=== PATIENT | female | born 1995 | race American Indian/Alaskan Native ===

== ENCOUNTER 2021-03-25 14:20 | Emergency (ER) | payer MEDICAID ==
[2021-03-25 14:40] VITALS: BP 135/82
--- NOTE | 2021-03-25 15:11 | ED Physician Documentation ---
History of Present Illness - Stated complaint Stated Complaint: L BIG TOE INFECTION,PX CENTER CHEST - Chief complaint Chief Complaint: Ext Problem - History obtained from History obtained from: Patient - History of Present Illness Timing: Today Pain level max: 0 Pain level now: 0 - Additonal information Additional information: Patient is a 25-year-old female who presents to the emergency department stating that she has noticed what appears to be a fungal infection to her left great toe for the past several weeks. Today she noticed that her toe was more red. No drainage. Nothing makes it better or worse. Not having pain. No fevers. No chills. Has never been treated for this before. Review of Systems Constitutional: denies: Fever, Chills : denies: Now EGA Skin: denies: Rash Musculoskeletal: denies: Neck pain, Back pain Neurologic: denies: Headache PD PAST MEDICAL HISTORY - Past Medical History Past Medical History: No - Past Surgical History Past Surgical History: No - Present Medications Home Medications: Ambulatory Orders Medication Instructions Recorded Confirmed Terbinafine [Lamisil] 250 mg PO DAILY #42 tablet 03/25/21 - Allergies Allergies/Adverse Reactions: Allergies Allergy/AdvReac Type Severity Reaction Status Date / Time No Known Drug Allergies Allergy Verified 03/25/21 14:40 PD ED PE NORMAL - Vitals Vital signs reviewed: Yes - General General: Alert and oriented X 3, No acute distress - HEENT HEENT: Moist mucous membranes - Neck Neck: Supple, no meningeal sign - Cardiac Cardiac: RRR - Respiratory Respiratory: No respiratory distress, Clear bilaterally - Abdomen Abdomen: Soft, Non tender, Non distended - Derm Derm: Warm and dry - Extremities Extremities: Other (Left great toe without erythema, swelling or drainage. The toenail does appear cracked and yellowed.) - Neuro Neuro: Alert and oriented X 3 Results - Vitals Vitals: Vital Signs - 24 hr 03/25/21 14:33 Temperature 36.3 C L Heart Rate 74 Respiratory 16 Rate Blood Pressure 135/82 H O2 Saturation 100 Oxygen O2 Source Room air PD MEDICAL DECISION MAKING - ED course Complexity details: considered differential, d/w patient ED course: Patient with what appears to be onychomycosis. She does not have a secondary infection. No paronychia. No cellulitis. She denies any possibility of . We will place her on oral terbinafine and have her follow-up with podiatry for further care. Patient does not have any chest pain. She denies having chest pain earlier to me. Patient counseled regarding signs and symptoms for which I believe and urgent re-evaluation would be necessary. Patient with good understanding of and agreement to plan and is comfortable going home at this time This document was made in part using voice recognition software. While efforts are made to proofread this document, sound alike and grammatical errors may occur. Departure - Departure Disposition: 01 Home, Self Care Clinical Impression: Fungal toenail infection Condition: Good Instructions: ED Nail Infec Fungal Follow-Up: Gerri Matos, DPM [Provider Admit Priv/Credential] - Carlitos Ferreira DPM [Physician No Access] - Prescriptions: Terbinafine [Lamisil] 250 mg PO DAILY #42 tablet Comments: Please follow-up with your doctor for further care. It is important you follow- up with the blood splatter analyst. The terbinafine treatment will be for 6 weeks, this may need to be extended to 12 weeks. Please call podiatry to schedule an appointme nt within the next week. Return if you worsen. Your prescription was sent to [facility] in [place].
== END 2021-03-25 15:23 | disposition home or self-care (01) ==
LOC: ED 14:20
DX: B35.1 Tinea unguium (principal)
CPT/HCPCS: 99282; 99283

== ENCOUNTER 2021-07-02 11:26 | Emergency (ER) | payer OTHER, MEDICAID ==
[2021-07-02 12:33] LABS: BASOPHILS % (AUTO) 0.5 %; EOSINOPHILS # (AUTO) 0.1 10^3/uL (0.0-0.7); EOSINOPHILS % (AUTO) 1.4 %; HCT - HEMATOCRIT 40.6 % (37.0-47.0); HGB - HEMOGLOBIN 13.4 g/dL (12.0-16.0); LYMPHOCYTES # (AUTO) 2.6 10^3/uL (1.5-3.5); LYMPHOCYTES % (AUTO) 30.9 %; MEAN CORPUSCULAR HEMOGLOBIN 29.7 pg (27.0-31.0); MEAN PLATELET VOLUME 9.2 fL (7.9-10.8); MONOCYTES # (AUTO) 0.5 10^3/uL (0.0-1.0); MONOCYTES % (AUTO) 6.4 %; NEUTROPHILS % (AUTO) 60.7 %; PLT - PLATELET COUNT 297 10^3/uL (130-450); RED BLOOD COUNT 4.51 10^6/uL (4.20-5.40); RED CELL DISTRIBUTION WIDTH 12.7 % (12.0-15.0); WHITE BLOOD COUNT 8.3 x10^3/uL (4.8-10.8)
[2021-07-02 12:47] LABS: BILIRUBIN,TOTAL 0.6 mg/dL (0.2-1.0); CALCIUM 9.2 mg/dL (8.5-10.3); CREATININE 0.6 mg/dL (0.4-1.0); POTASSIUM 3.9 mmol/L (3.5-5.0); TOTAL PROTEIN 7.9 g/dL (6.7-8.2)
--- NOTE | 2021-07-02 13:05 | ED Physician Documentation ---
PD HPI ABD PAIN - Stated complaint Stated Complaint: STOMACH PX, NAUSEA - Chief complaint Chief Complaint: Abd Pain - History obtained from History obtained from: Patient - History of Present Illness Timing - onset: How many days ago (3-4) Timing - duration: Days (3-4) Timing - details: Gradual onset, Waxing and waning (There are 4 days of upper abdominal pain associated with "heartburn" feeling which is worsened with eating. Nausea associated. Has noticed loose stool without any melena but is green-yellow in color.) Quality: Cramping, Aching, Pain Location: RUQ, Epigastric Radiation: Right flank (today) Improved by: Meds (Tums). No: Eating Worsened by: Eating Associated symptoms: Nausea, Loss of appetite. No: Fever, Vomiting, Diarrhea (but loose with some green/yellow coloring), Constipation, Dysuria Similar symptoms before: Has not had sx before Recently seen: Not recently seen Review of Systems Constitutional: denies: Fever, Chills Nose: denies: Rhinorrhea / runny nose, Congestion Throat: denies: Sore throat Respiratory: denies: Cough GI: reports: Abdominal Pain (upper abd central and right), Nausea. denies: Vomiting, Diarrhea, Bloody / black stool : reports: Irregular menses (commonly). denies: Dysuria, Discharge Neurologic: denies: Generalized weakness, Near syncope PD PAST MEDICAL HISTORY - Past Medical History Cardiovascular: None Respiratory: None Endocrine/Autoimmune: None GI: None - Past Surgical History Past Surgical History: No - Present Medications Home Medications: Ambulatory Orders Medication Instructions Recorded Confirmed Terbinafine [Lamisil] 250 mg PO DAILY #42 tablet 03/25/21 Famotidine [Pepcid] 20 mg PO DAILY #20 tablet 07/02/21 HYDROcod/ACETAM 5/325 [[place] 5/325] 1 ea PO Q6H PRN #10 tablet 07/02/21 Ondansetron Odt [Zofran] 4 mg TL Q6H PRN #15 tablet 07/02/21 - Allergies Allergies/Adverse Reactions: Allergies Allergy/AdvReac Type Severity Reaction Status Date / Time peanut Allergy Unknown Verified 07/02/21 11:46 - Living Situation Living Situation: reports: With friend(s) Living Arrangement: reports: At home - Social History Does the pt smoke?: Yes Smoking Status: Current every day smoker Does the pt drink ETOH?: Yes ETOH Use: Other (occasional alcohol; none regular) Does the pt have substance abuse?: No PD ED PE NORMAL - Vitals Vital signs reviewed: Yes - General General: Alert and oriented X 3, No acute distress, Well developed/nourished - HEENT HEENT: PERRL (nonicteric) - Neck Neck: Supple, no meningeal sign, No adenopathy - Cardiac Cardiac: RRR, No murmur - Respiratory Respiratory: Clear bilaterally - Abdomen Abdomen: Normal bowel sounds, Soft, Non distended, No organomegaly, Other (tender epigastric and RUQ area with local guarding but no percussion nor rebound tenderness. ) - Female Female : Deferred - Rectal Rectal: Deferred - Back Back: No CVA TTP - Derm Derm: Normal color, Warm and dry - Extremities Extremities: No edema - Neuro Neuro: Alert and oriented X 3, No motor deficit, Normal speech Results - Vitals Vitals: Vital Signs - 24 hr 07/02/21 07/02/21 11:43 14:39 Temperature 36.7 C 36.8 C Heart Rate 77 64 Respiratory 18 18 Rate Blood Pressure 149/90 H 133/82 H O2 Saturation 96 99 Oxygen O2 Source Room air - Labs Labs: Laboratory Tests 07/02/21 07/02/21 07/02/21 12:30 12:30 13:02 WBC 8.3 RBC 4.51 Hgb 13.4 Hct 40.6 MCV 90.0 MCH 29.7 MCHC 33.0 RDW 12.7 Plt Count 297 MPV 9.2 Neut # (Auto) 5.0 Lymph # (Auto) 2.6 [place] # (Auto) 0.5 Eos # (Auto) 0.1 Baso # (Auto) 0.0 Absolute Nucleated RBC 0.00 Nucleated RBC % 0.0 Sodium 141 Potassium 3.9 Chloride 105 Carbon Dioxide 27 Anion Gap 9.0 BUN 9 Creatinine 0.6 Estimated GFR (MDRD) 121 Glucose 107 H Calcium 9.2 Total Bilirubin 0.6 AST 22 ALT 23 Alkaline Phosphatase 75 Total Protein 7.9 Albumin 4.0 Globulin 3.9 Albumin/Globulin Ratio 1.0 Lipase 26 Urine Color YELLOW Urine Clarity CLEAR Urine pH 6.0 Ur Specific [place] >=1.030 H Urine Protein NEGATIVE Urine Glucose (UA) NEGATIVE Urine Ketones NEGATIVE Urine Occult Blood SMALL H Urine Nitrite NEGATIVE Urine Bilirubin NEGATIVE Urine Urobilinogen 0.2 (NORMAL) Ur Leukocyte Esterase NEGATIVE Urine RBC 6-10 H Urine WBC 0-3 Ur Squamous Epith Cells MOD Squamous H Urine Bacteria Moderate H Urine Mucus Marked Strands Ur Microscopic Review INDICATED Urine Culture Comments NOT INDICATED Urine HCG, Qual NEGATIVE - Rads (name of study) abd ultrasound Radiology: Prelim report reviewed (small amount of sludge in GB; no other abnormality.), See rad report PD MEDICAL DECISION MAKING - ED course Complexity details: reviewed results, considered differential (Consider gastritis versus ulcer versus gallbladder spasm versus pancreatitis.), d/w patient Departure - Departure Disposition: Home, Self Care Clinical Impression: Upper abdominal pain Acute gastritis Qualifiers: Gastritis type: unspecified gastritis Gastritis bleeding: without bleeding Qualified Code(s): K29.00 - Acute gastritis without bleeding Condition: Stable Record reviewed to determine appropriate education?: Yes Instructions: ED Gastritis Prescriptions: HYDROcod/ACETAM 5/325 [[place] 5/325] 1 ea PO Q6H PRN #10 tablet PRN Reason: Pain Famotidine [Pepcid] 20 mg PO DAILY #20 tablet Ondansetron Odt [Zofran] 4 mg TL Q6H PRN #15 tablet PRN Reason: Nausea / Vomiting Comments: Blood tests for pancreas and liver are normal. Your ultrasound does not show any gallbladder inflammation or stones. Presume you have an irritation of the stomach (gastritis). Small frequent fluids and bland food for the next few days. Famotidine acid reducing medicine twice daily for a week. Add ondansetron if needed for nausea. For pain, avoid anti-inflammatories such as ibuprofen or naproxen. Use Tylenol every 4-6 hours as needed. At hydrocodone if needed for worse pain in the short run. I would anticipate improvement over the next 2 to 3 days and resolved by 3 to 5 days. Recheck if not improving in that timeframe and return sooner if worse. I transmitted your prescriptions to [facility] pharmacy. I am prescribing a short course of narcotic pain medication for you. These are potentially dangerous and addictive medications that should be used carefully. These medications may constipate you. Take an rsgr-ugh-bdeaats stool softener such as docusate twice daily with plenty of water while taking these medications. If you go 24 hours without a bowel movement, take [id number] MiraLAX, per package instructions. Do not drink or drive while taking these medications. If you received narcotic or sedating medications while in the emergency department do not drive for 24 hours. Store this medication in a safe, secure place and out of reach of children. It is a violation of federal law to give or sell this medication to another person or to use in a manner other than prescribed. The ED will not refill narcotic prescriptions, including prescriptions lost or stolen. You can dispose of unwanted medications at the [facility]'s office or at several pharmacies such as [facility]. Discharge Date/Time: 07/02/21 14:39
[2021-07-02 13:24] LABS: BILIRUBIN,URINE NEGATIVE (NEGATIVE); GLUCOSE, URINE (UA) NEGATIVE (NEGATIVE); KETONES,URINE (UA) NEGATIVE (NEGATIVE); LEUKOCYTE ESTERASE, URINE NEGATIVE (NEGATIVE); NITRITE,URINE NEGATIVE (NEGATIVE); OCCULT BLOOD,URINE SMALL (NEGATIVE); PROTEIN,URINE NEGATIVE (NEGATIVE); UROBILINOGEN,URINE 0.2 (NORMAL) E.U./dL (NORMAL)
[2021-07-02 13:28] LABS: CLARITY,URINE CLEAR (CLEAR); HCG UR QUAL NEGATIVE
[2021-07-02] MEDS ORDERED: MAG HYDROX/AL HYDROX/SIMETH 30 ML UDC PO STA (13:30)
[2021-07-02] MEDS ORDERED: ONDANSETRON ODT 4 MG TABLET TL STA (13:30)
[2021-07-02] MEDS ORDERED: FAMOTIDINE 20 MG TABLET PO STA (13:31)
[2021-07-02] MEDS ORDERED: LIDOCAINE VISCOUS 2% 15 ML UDC MM STA (13:31)
[2021-07-02 13:38] LABS: BACTERIA,URINE Moderate /HPF (None Seen); MUCUS,URINE Marked Strands; SQUAMOUS EPITHELIAL CELL,UR MOD Squamous (<= Few); WBC,URINE 0-3 /HPF (0-5)
[2021-07-02] MEDS ORDERED: HYDROcod/ACETAM 5/325 MG TABLET PO STA (14:23)
--- NOTE | 2021-07-02 14:38 | Ultrasound Report ---
PROCEDURE: Abdomen Limited INDICATIONS: upper abd pain/nausea with eating TECHNIQUE: Real-time focused scanning was performed of the abdomen, with image documentation. COMPARISON: None FINDINGS: The liver demonstrates normal size. The liver demonstrates moderately increased echogeni city, which limits ultrasound sensitivity for detection of masses. No gallstones are seen. A mild amount of sludge can be seen. The gallbladder wall does not appear thi ckened. There is no specific pericholecystic fluid. The sonographic Do's sign is negative. No biliary ductal dilatation is seen. The common bile duct measures 3 mm. The visualized pancreas is within normal limits. The visualized right kidney is unremarkable. IMPRESSION: A small amount of sludge can be seen within the gallbladder, without additional gallbladder abnormali ty seen. Increased liver echogenicity is seen. This is nonspecific, yet it is most commonly attributed to fatt y infiltration. Note: Concordant preliminary findings given by the group product manager upon the completion of the examination to Dr. Schafer at 2:20 PM on 07/02/2021. Reviewed by: Tommie Enciso MD on 07/02/2021 1:37 PM [place] Approved by: Tommie Enciso MD on 07/02/2021 1:37 PM [facility] Station ID: [id number]
[2021-07-02 14:40] VITALS: BP 133/82
== END 2021-07-02 14:39 | disposition home or self-care (01) ==
LOC: ED 11:26
DX: K29.00 Acute gastritis without bleeding (principal); F17.200 Nicotine dependence, unspecified, uncomplicated
CPT/HCPCS: 36415; 76705; 80053; 81001; 81025; 83690; 85025; 99283; 99284; A9270; Q0162; 81003; 87086

== ENCOUNTER 2021-07-16 08:42 | Emergency (ER) | payer BC, MEDICAID, OTHER ==
[2021-07-16 09:06] VITALS: BP 136/74
--- NOTE | 2021-07-16 09:47 | ED Physician Documentation ---
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 No: Moving Associated symptoms: No: Weakness, Numbness Similar symptoms before: Has not had sx before Review of Systems Constitutional: denies: Fever, Chills Nose: denies: Rhinorrhea / runny nose, Congestion Throat: denies: Sore throat Respiratory: denies: Cough Neurologic: denies: Focal weakness, Numbness PD PAST MEDICAL HISTORY - Past Medical History Cardiovascular: None Respiratory: None Endocrine/Autoimmune: None GI: None - Past Surgical History Past Surgical History: No - Present Medications Home Medications: Ambulatory Orders Medication Instructions Recorded Confirmed Terbinafine [Lamisil] 250 mg PO DAILY #42 tablet 03/25/21 Famotidine [Pepcid] 20 mg PO DAILY #20 tablet 07/02/21 HYDROcod/ACETAM 5/325 [[place] 5/325] 1 ea PO Q6H PRN #10 tablet 07/02/21 Ondansetron Odt [Zofran] 4 mg TL Q6H PRN #15 tablet 07/02/21 Amox/Clav 875/125 [Augmentin] 1 each PO BID 5 Days #10 tablet 07/16/21 - Allergies Allergies/Adverse Reactions: Allergies Allergy/AdvReac Type Severity Reaction Status Date / Time peanut Allergy Unknown Verified 07/16/21 09:06 - Social History Does the pt smoke?: Yes Smoking Status: Current every day smoker Does the pt drink ETOH?: Yes Does the pt have substance abuse?: No PD ED PE NORMAL - Vitals Vital signs reviewed: Yes - General General: Alert and oriented X 3, No acute distress, Well developed/nourished - Derm Derm: Normal color, Warm and dry - Extremities Extremities: Other (right hand with small puncture dorsal over first MC area. No bleeding. No noted FB. Some abrasions of fingers. ) - Neuro Neuro: No motor deficit, No sensory deficit Results - Vitals Vitals: Oxygen O2 Source Room air PD MEDICAL DECISION MAKING - ED course Complexity details: considered differential, d/w patient Departure - Departure Disposition: 01 Home, Self Care Clinical Impression: Dog bite of right hand Qualifiers: Encounter type: initial encounter Qualified Code(s): S61.451A - Open bite of right hand, initial encounter Condition: Stable Record reviewed to determine appropriate education?: Yes Instructions: ED Bite Dog Prescriptions: Amox/Clav 875/125 [Augmentin] 1 each PO BID 5 Days #10 tablet Comments: Cleanse the area with soap and water or briefly with warm soaks 2-3 times a day for the first day or 2 and then routine care. You can use some antibiotic ointment to the area as well. Augmentin oral antibiotic twice daily for 5 days to reduce the chance of infection. Tylenol every 4-6 hours if needed for pains. Recheck if signs of infection develop otherwise this should heal up okay. It likely will get some bruising to the area. I transmitted your prescription to [facility] pharmacy in [place]. Discharge Date/Time: 07/16/21 11:10
[2021-07-16] MEDS ORDERED: AMOX/CLAV 875 MG/125 MG TABLET PO STA (09:56)
[2021-07-16] MEDS ORDERED: ACETAMINOPHEN 325 MG TABLET PO STA (09:56)
== END 2021-07-16 11:10 | disposition home or self-care (01) ==
LOC: ED 08:42
DX: S61.451A Open bite of right hand, initial encounter (principal); W54.0XXA Bitten by dog, initial encounter; Y92.59 Other trade areas as the place of occurrence of the external cause; Y99.0 Civilian activity done for income or pay; F17.200 Nicotine dependence, unspecified, uncomplicated
CPT/HCPCS: 99282; 99283; A9270

== ENCOUNTER 2021-07-30 20:58 | Emergency (ER) | payer OTHER, MEDICAID ==
[2021-07-30] MEDS ORDERED: AMOX/CLAV 875 MG/125 MG TABLET PO STA (21:22)
[2021-07-30] MEDS ORDERED: TETANUS/DIPHTHERIA/PERTUSSIS 0.5 ML SYRINGE IM ONE (21:22)
--- NOTE | 2021-07-30 21:25 | ED Physician Documentation ---
History of Present Illness - Stated complaint Stated Complaint: R HAND DOG BITE - Chief complaint Chief Complaint: Laceration - History obtained from History obtained from: Patient - Additonal information Additional information: 26yF with recent dog bite p/w repeat bite today by a foster dog who is vaccinated against rabies. R hand puncture wound at hypothenar eminence. patient copiously irrigated with hydrogen peroxide and soap/water immediately after. It started bleeding again and so she came to the ED but it has now stopped. she has augmentin from the previous bite that she never took. she did take one dose today at noon. Review of Systems Skin: reports: Bite / sting PD PAST MEDICAL HISTORY - Past Medical History Past Medical History: No Cardiovascular: None Respiratory: None Endocrine/Autoimmune: None GI: None - Past Surgical History Past Surgical History: No - Present Medications Home Medications: Ambulatory Orders Medication Instructions Recorded Confirmed Amox/Clav 875/125 [Augmentin] 1 each PO BID 5 Days #10 tablet 07/16/21 07/30/21 - Allergies Allergies/Adverse Reactions: Allergies Allergy/AdvReac Type Severity Reaction Status Date / Time peanut Allergy Unknown Verified 07/30/21 21:07 - Social History Does the pt smoke?: Yes Smoking Status: Current every day smoker Does the pt drink ETOH?: No Does the pt have substance abuse?: No - Immunizations Immunizations are current?: Yes - POLST Patient has POLST: No PD ED PE NORMAL - Vitals Vital signs reviewed: Yes - General General: Alert and oriented X 3, No acute distress, Well developed/nourished - HEENT HEENT: Atraumatic, PERRL, EOMI - Derm Derm: Other (R hand puncture wound at hypothenar eminence. 2+ radial pulses. normal sensation, movement, cap refill) - Neuro Neuro: No motor deficit, No sensory deficit Results - Vitals Vitals: Vital Signs - 24 hr 07/30/21 21:05 Temperature 36.3 C L Heart Rate 83 Respiratory 20 Rate Blood Pressure 160/101 H O2 Saturation 95 Oxygen O2 Source Room air PD MEDICAL DECISION MAKING - ED course ED course: 26yF p/w dog bite to the hand, neurovascularly intact. She already took one dose of home augmentin and has a leftover unexpired bottle with a 5 day course of 875mg bid augmentin that I advised her she can use. Strict return precautions discussed and patient will plan to f/u with pmd as needed. Departure - Departure Disposition: 01 Home, Self Care Clinical Impression: Dog bite Condition: Good Instructions: ED Bite Dog Comments: You were seen in the emergency department for a dog bite. Please take augmentin 875mg twice a day for the next four days to prevent serious infection. Monitor for any signs of infection. Return to the ED for new or worsening symptoms or other concerns.
[2021-07-30] MEDS ORDERED: BACITRACIN ZINC OINT 1 PACKET TOP STA (21:47)
[2021-07-30] MEDS ORDERED: BACITRACIN ZINC OINT 1 PACKET TOP ONE (21:56)
[2021-07-30 22:04] VITALS: BP 151/93
== END 2021-07-30 22:05 | disposition home or self-care (01) ==
LOC: ED 20:58
DX: S61.451A Open bite of right hand, initial encounter (principal); W54.0XXA Bitten by dog, initial encounter; Y92.009 Unspecified place in unspecified non-institutional (private) residence as the place of occurrence of the external cause; F17.200 Nicotine dependence, unspecified, uncomplicated
CPT/HCPCS: 90471; 90715; 99282; 99283; A9270

== ENCOUNTER 2021-12-31 13:39 | Emergency (ER) | payer MEDICAID, OTHER ==
[2021-12-31 13:58] VITALS: BP 137/72
[2021-12-31] MEDS ORDERED: IBUPROFEN 600 MG TABLET PO STA (14:23)
[2021-12-31] MEDS ORDERED: CHERRY SYRUP 10 ML UDC PO ONE (14:23)
[2021-12-31] MEDS ORDERED: DEXAMETHASONE 10 MG/ML VIAL PO STA (14:23)
--- NOTE | 2021-12-31 14:26 | ED Physician Documentation ---
History of Present Illness - Stated complaint Stated Complaint: BODYACHES,SORE THROAT,EAR PX,FEVER - Chief complaint Chief Complaint: General - Additonal information Additional information: 26-year-old female presents emergency department for evaluation of sore throat, painful swallow, ear pain body aches and fever for 2 days. T-max 100.3. Reports that her son was sick with similar last week but he improved. Patient is not vaccinated for COVID-19 but did do a rapid test at home that was negative. She is mostly worried about her painful throat Review of Systems Constitutional: reports: Fever, Myalgias Eyes: reports: Reviewed and negative Ears: reports: Reviewed and negative Nose: reports: Reviewed and negative Throat: reports: Sore throat, Swollen tonsils. denies: Swallowed foreign body, Reviewed and negative Cardiac: denies: Chest pain / pressure, Palpitations Respiratory: denies: Dyspnea, Cough GI: reports: Reviewed and negative : reports: Reviewed and negative Skin: reports: Reviewed and negative Musculoskeletal: reports: Reviewed and negative PD PAST MEDICAL HISTORY - Past Medical History Cardiovascular: None Respiratory: None Endocrine/Autoimmune: None GI: None - Past Surgical History Past Surgical History: No - Present Medications Home Medications: Ambulatory Orders Medication Instructions Recorded Confirmed Amox/Clav 875/125 [Augmentin] 1 each PO BID 5 Days #10 tablet 07/16/21 07/30/21 - Allergies Allergies/Adverse Reactions: Allergies Allergy/AdvReac Type Severity Reaction Status Date / Time peanut Allergy Unknown Verified 12/31/21 13:54 - Social History Does the pt smoke?: Yes Smoking Status: Current every day smoker Does the pt drink ETOH?: No Does the pt have substance abuse?: No - Immunizations Immunizations are current?: Yes - POLST Patient has POLST: No PD ED PE NORMAL - General General: Alert and oriented X 3, No acute distress, Well developed/nourished - HEENT HEENT: Atraumatic, Ears normal, Moist mucous membranes. No: Pharynx benign (Mildly enlarged tonsils bilaterally without exudate. Posterior oropharynx erythema. Normal swallow. Uvula is midline. No soft palate asymmetry or swelling. 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 Eye Opening: Spontaneous Motor: Obeys Commands Verbal: Oriented GCS Score: 15 - Psych Psych: Normal mood Results - Vitals Vitals: Vital Signs - 24 hr 12/31/21 13:54 Temperature 37.3 C Heart Rate 94 Respiratory 16 Rate Blood Pressure 137/72 H O2 Saturation 98 Oxygen O2 Source Room air - Labs Labs: Laboratory Tests 12/31/21 14:20 Group A Strep Rapid Negative PD MEDICAL DECISION MAKING - ED course Complexity details: considered differential, d/w patient ED course: 26-year-old female presents emergency department for evaluation of generalized body aches, sore throat, left ear pain and painful swallow. Symptoms began last night. T-max of 100.3. She is not vaccinated for COVID but had a negative rapid test at home. Reports her son was sick with similar last week. On exam she has some mild posterior oropharynx erythema and talking slurred enlargement but nothing to suggest RPA or SHOP TAILOR. Rapid strep is negative. Patient was given a dose of Decadron and ibuprofen here in the emergency department. Following the ibuprofen she does have improved swallow. Will defer antibiotics unless culture is positive. Deferred COVID screening as her test was negative at home. She presents with no hypoxia or cough and does not warrant x-ray imaging. Discussed routine care of what I suspect is a viral URI. Emergent return precautions were discussed Departure - Departure Disposition: Home, Self Care Clinical Impression: Sore throat Condition: Stable Record reviewed to determine appropriate education?: Yes Comments: You are seen today in the emergency department for fevers, ear pain, sore throat and body aches. You reported a negative COVID test at home. Your rapid strep test today is negative. We are sending the swab for culture and will order antibiotics only if this culture is positive. As your son was sick with similar last week I suspect you have a viral pharyngitis. I do recommend 600 mg of ibuprofen 2-3 times a day taken with food. Alternatively can try 500 mg of Tylenol to also help with pain and body aches. Drink plenty of fluids. If at any point you find that you have worsening symptoms, ear drainage, are unable to speak or swallow normally then you should return to the ER for second evaluation.
[2021-12-31 14:34] LABS: RAPID STREP SCREEN Negative (Negative)
== END 2021-12-31 15:05 | disposition home or self-care (01) ==
LOC: ED 13:39
DX: J02.9 Acute pharyngitis, unspecified (principal); F17.200 Nicotine dependence, unspecified, uncomplicated; Z28.310 Unvaccinated for COVID-19
CPT/HCPCS: 87070; 87430; 99282; 99283; A9270

== ENCOUNTER 2022-01-02 13:18 | Emergency (ER) | payer MEDICAID ==
[2022-01-02 14:26] LABS: INFECTIOUS MONONUCLEOSIS NEGATIVE (Negative)
--- NOTE | 2022-01-02 14:39 | ED Physician Documentation ---
History of Present Illness - Stated complaint Stated Complaint: BODY RASH - Chief complaint Chief Complaint: Allergic Rx - Additonal information Additional information: 26-year-old female presents emergency department for evaluation of a rash. She began having a papular eruption on her hands face and back of her legs yesterday. She was seen by myself for sore throat and fever 2 days ago. At that time rapid strep testing was negative. She feels that the sore throat and fever have fully resolved but she became very anxious when she developed this rash. No history of similar. Her control room technician reports that her children had a similar rash last week. Review of Systems Constitutional: reports: Fever Eyes: reports: Reviewed and negative Throat: reports: Reviewed and negative Cardiac: reports: Reviewed and negative Respiratory: reports: Reviewed and negative GI: reports: Reviewed and negative : reports: Reviewed and negative Skin: reports: Rash Musculoskeletal: reports: Reviewed and negative Neurologic: reports: Reviewed and negative PD PAST MEDICAL HISTORY - Past Medical History Past Medical History: Yes Cardiovascular: None Respiratory: None Neuro: None Endocrine/Autoimmune: None GI: None POWER DISTRIBUTOR: None : None HEENT: None Psych: Depression, Anxiety, Panic attacks Musculoskeletal: None Derm: None - Past Surgical History Past Surgical History: No - Present Medications Home Medications: Ambulatory Orders Medication Instructions Recorded Confirmed No Known Home Medications 01/02/22 01/02/22 - Allergies Allergies/Adverse Reactions: Allergies Allergy/AdvReac Type Severity Reaction Status Date / Time peanut Allergy Unknown Verified 12/31/21 13:54 - Social History Does the pt smoke?: No Smoking Status: Former smoker Does the pt drink ETOH?: No Does the pt have substance abuse?: No - Immunizations Immunizations are current?: No Immunizations: Other immun not current - POLST Patient has POLST: No PD ED PE NORMAL - General General: Alert and oriented X 3, No acute distress, Well developed/nourished - HEENT HEENT: Atraumatic. No: Pharynx benign (Mild posterior oropharynx erythema without vesicular eruption) - Neck Neck: Supple, no meningeal sign, No adenopathy - Cardiac Cardiac: RRR, No murmur - Respiratory Respiratory: No respiratory distress - Abdomen Abdomen: Normal bowel sounds, Soft - Back Back: No CVA TTP, No spinal TTP - Derm Derm: Normal color, Warm and dry. No: No rash (Papular rash on left side of face, forearms posterior thighs. Nonvesicular. Negative Nikolsky's. No surrounding erythema. Papules are approximately 2 to 3 mm. Raised.) - Neuro Neuro: Alert and oriented X 3, meter repairer 2-12 intact Eye Opening: Spontaneous Motor: Obeys Commands Verbal: Oriented GCS Score: 15 Results - Vitals Vitals: Vital Signs - 24 hr 01/02/22 13:25 Temperature 36.6 C Heart Rate 75 Respiratory 18 Rate Blood Pressure 147/81 H O2 Saturation 100 Oxygen O2 Source Room air - Labs Labs: Laboratory Tests 01/02/22 14:12 Infectious [place] Assay NEGATIVE PD MEDICAL DECISION MAKING - ED course Complexity details: reviewed results, re-evaluated patient, considered differ ential, d/w patient ED course: `This is a very well-appearing though anxious 26-year-old female the presents emergency department for evaluation of a papular rash that began yesterday. Began on her face and she has papular lesions on the left side of her face hands and posterior thighs. Nonvesicular. Negative Nikolsky's. Seen by myself on the for a sore throat and fever. Rapid strep was negative. Here in the emergency department she appears rather well though is anxious. Respiratory PCR panel is pending. Given the recent sore throat and fever I did do a monotest that was negative. I do suspect that she likely has a viral exanthem though this is not consistent with a herpetic lesion and thus will defer any antivirals. Reassurance was offered to the patient. Emergent return precautions discussed Departure - Departure Disposition: 01 Home, Self Care Clinical Impression: Rash and nonspecific skin eruption Condition: Stable Record reviewed to determine appropriate education?: Yes Comments: Mony carter were seen today in the emergency department because you developed a rash yesterday. Goran at the bedside I suspect that the rash is likely due to a virus. Your control room technician's children had rash last week and is likely you have contracted the same virus which causes the fever and sore throat you had. Your strep testing was negative a few days ago. Your mononucleosis testing is negative today. We are sending a respiratory viral panel. In general there is no specific treatment for your rash. I suspect that will simply dissipate over the next week or so. If at any point you have fevers higher than 102, worsening rash, it blisters or you have difficulty breathing then please return to the ER for second evaluation.
[2022-01-02 15:22] LABS: CORONAVIRUS 229E-RESP PCR NOT DETECTED; CORONAVIRUS HKU1-RESP PCR NOT DETECTED; CORONAVIRUS NL63-RESP PCR NOT DETECTED; CORONAVIRUS OC43-RESP PCR NOT DETECTED; SARS-CoV-2 -RESP PCR PANEL NOT DETECTED
[2022-01-02 15:23] LABS: B. PARAPERTUSSIS- RESP PCR PAN NOT DETECTED; B. PERTUSSIS- RESP PCR PANEL NOT DETECTED; C. PNEUMONIAE- RESP PCR PANEL NOT DETECTED; HUMAN METAPNEUMOVIRUS NOT DETECTED; INFLUENZA A- RESP PCR PANEL NOT DETECTED; INFLUENZA B - RESP PCR PANEL NOT DETECTED; M. PNEUMONIAE- RESP PCR PANEL NOT DETECTED; PARAINFLUENZA VIRUS 1 NOT DETECTED; PARAINFLUENZA VIRUS 2 NOT DETECTED; PARAINFLUENZA VIRUS 3 NOT DETECTED; PARAINFLUENZA VIRUS 4 NOT DETECTED; RHINOVIRUS/ENTEROVIRUS DETECTED; RSV- RESP PCR PANEL NOT DETECTED
[2022-01-02 15:28] VITALS: BP 131/80
--- NOTE | 2022-01-04 13:51 | ED Physician Documentation ---
ED Addendum - Addendum Addendum: 01/04/22 13:50 Attempted to notify pt via phone that resp pcr panel + for enterovirus/rhino virus. unable to leave message.
== END 2022-01-02 15:27 | disposition home or self-care (01) ==
LOC: ED 13:18
DX: B34.8 Other viral infections of unspecified site (principal); R21 Rash and other nonspecific skin eruption; Z87.891 Personal history of nicotine dependence; Z20.822 Contact with and (suspected) exposure to COVID-19
CPT/HCPCS: 86308; 87633; 99282; 99283

== ENCOUNTER 2022-05-23 08:00 | Outpatient (CLI) | payer MEDICAID ==
[2022-05-23 10:32] LABS: BILIRUBIN,URINE NEGATIVE (NEGATIVE); GLUCOSE, URINE (UA) NEGATIVE (NEGATIVE); KETONES,URINE (UA) NEGATIVE (NEGATIVE); LEUKOCYTE ESTERASE, URINE NEGATIVE (NEGATIVE); NITRITE,URINE NEGATIVE (NEGATIVE); OCCULT BLOOD,URINE NEGATIVE (NEGATIVE); PROTEIN,URINE NEGATIVE (NEGATIVE); UROBILINOGEN,URINE 0.2 (NORMAL) E.U./dL (NORMAL)
[2022-05-23 10:48] LABS: BACTERIA,URINE Few /HPF (None Seen); CLARITY,URINE CLEAR (CLEAR); RBC,URINE None Seen /HPF (0-5); SQUAMOUS EPITHELIAL CELL,UR MOD Squamous (<= Few); WBC,URINE 0-3 /HPF (0-5)
== END 2022-05-23 23:59 | disposition home or self-care (01) ==
LOC: LAB.WC 08:00
PROVIDERS: ATTEND Nurse Practitioner
DX: Z34.90 Encounter for supervision of normal pregnancy, unspecified, unspecified trimester (principal)
CPT/HCPCS: 81001; 87086

== ENCOUNTER 2022-05-29 12:40 | Outpatient (CLI) | payer MEDICAID ==
--- NOTE | 2022-05-29 16:29 | Ultrasound Report ---
PROCEDURE: OB First Trimester w/TV INDICATIONS: POSITIVE TEST OUTSIDE/PRIOR DATING DATA: Last menstrual period (LMP): 03/22/2022. LMP-based estimated date of delivery (MARLEN): 12/27/2022. First dating scan (date and location): 05/29/2022. Estimated date of delivery (MARLEN) from first dating scan: 01/16/2023. TECHNIQUE: Real-time scanning was performed of the fetus and maternal pelvic organs, with image documentation. Endovaginal scanning was also performed to better visualize the fetus and maternal ovaries. COMPARISON: None. FINDINGS: Embryo: Present with crown-rump length of 0.86 cm corresponding to gestational age of 6 weeks 6 days . Heart rate: 141 bpm Measurement variability in dating: +/- 4 weeks by LMP, +/- 7 days by mean sac diameter (use before 6 weeks gestation if crown-rump length not able to be measured), +/- 5 days by crown-rump length (6-12 weeks gestation). Maternal organs: Ovaries are unremarkable. IMPRESSION: Single living intrauterine . Gestational age by crown-rump length of 6 weeks, 6 days, discor dant with clinical dates. By crown-rump length, MARLEN of 01/16/2023. Reviewed by: Edmond Eddy MD on 05/29/2022 4:28 PM PDT Approved by: Edmond Eddy MD on 05/29/2022 4:28 PM PDT Station ID: [id number]
== END 2022-05-29 12:41 | disposition home or self-care (01) ==
LOC: DI 12:40
PROVIDERS: ATTEND Nurse Practitioner
DX: O26.841 Uterine size-date discrepancy, first trimester (principal); Z3A.01 Less than 8 weeks gestation of pregnancy

== ENCOUNTER 2022-06-13 08:00 | Outpatient (CLI) | payer MEDICAID ==
[2022-06-13 23:20] LABS: CHLAMYDIA TRACHOMATIS DNA NEGATIVE (NEGATIVE); NEISSERIA GONORRHOEAE DNA NEGATIVE (NEGATIVE); TRICHOMONAS VAGINALIS DNA NEGATIVE (NEGATIVE)
== END 2022-06-13 23:59 | disposition home or self-care (01) ==
LOC: LAB.WCP 08:00
PROVIDERS: ATTEND Obstetrics & Gynecology
DX: Z11.3 Encounter for screening for infections with a predominantly sexual mode of transmission (principal)
CPT/HCPCS: 87491; 87591; 87661

== ENCOUNTER 2022-07-03 10:07 | Outpatient (CLI) | payer MEDICAID ==
[2022-07-03 11:40] LABS: BASOPHILS % (AUTO) 0.3 %; EOSINOPHILS # (AUTO) 0.1 10^3/uL (0.0-0.7); EOSINOPHILS % (AUTO) 0.9 %; HGB - HEMOGLOBIN 11.6 g/dL (12.0-16.0); LYMPHOCYTES # (AUTO) 2.3 10^3/uL (1.5-3.5); LYMPHOCYTES % (AUTO) 22.1 %; MEAN CORPUSCULAR HGB CONC 33.1 g/dL (32.0-36.0); MEAN CORPUSCULAR VOLUME 87.5 fL (81.0-99.0); MONOCYTES # (AUTO) 0.5 10^3/uL (0.0-1.0); MONOCYTES % (AUTO) 5.2 %; NEUTROPHILS # (AUTO) 7.3 10^3/uL (1.5-6.6); NEUTROPHILS % (AUTO) 71.3 %; PLT - PLATELET COUNT 349 10^3/uL (130-450); RED CELL DISTRIBUTION WIDTH 12.6 % (12.0-15.0); WHITE BLOOD COUNT 10.2 x10^3/uL (4.8-10.8)
[2022-07-04 04:08] LABS: HBsAG SCREEN Negative (Negative); HCV AB <0.1 s/co ratio (0.0-0.9)
[2022-07-04 05:10] LABS: RPR Non Reactive (Non Reactive)
[2022-07-04 09:09] LABS: HIV SCREEN 4TH GENERATION Non Reactive (Non Reactive)
[2022-07-04 13:10] LABS: VARICELLA-ZOSTER AB IGG <135 index (Immune >165)
== END 2022-07-03 10:08 | disposition home or self-care (01) ==
LOC: LAB 10:07
PROVIDERS: ATTEND Obstetrics & Gynecology
DX: Z34.91 Encounter for supervision of normal pregnancy, unspecified, first trimester (principal)
CPT/HCPCS: 36415; 82950; 85025; 86592; 86762; 86787; 86803; 86850; 86900; 86901; 87340; 87389

== ENCOUNTER 2022-09-03 11:25 | Outpatient (CLI) | payer MEDICAID ==
[2022-09-03 11:57] LABS: ALBUMIN/GLOBULIN RATIO 0.8 (1.0-2.2); BILIRUBIN,TOTAL 0.5 mg/dL (0.2-1.0); CREATININE 0.4 mg/dL (0.4-1.0); POTASSIUM 4.3 mmol/L (3.5-5.0); URIC ACID 3.6 mg/dL (2.6-7.2)
[2022-09-03 11:59] LABS: CREATININE,URINE 46.4 mg/dL; PROTEIN/CREATININE RATIO,URINE 0.1 (<=0.2)
[2022-09-06 20:08] LABS: AFP MOM See interpretation. (.); AFP VALUE 51.5 ng/mL (.); DIA MOM See interpretation. (.); DSR (BY AGE) 1 IN 885 (.); DSR (SECOND TRIMESTER) 1 IN See interpretation. (.); HCG MOM See interpretation. (.); HCG VALUE 34564 mIU/mL (.); INSULIN DEP DIABETES No (.); MATERNAL AGE AT EDD 27.6 yr (.); MULTIPLE GESTATION No (.); OPEN SPINA BIFIDA RISK 1 IN See interpretation. (.); RACE Other (.); RESULTS Report (.); TEST RESULTS See interpretation. (.); TRISOMY 18 RISK See interpretation. (.); UE3 MOM See interpretation. (.); UE3 VALUE 1.95 ng/mL (.)
== END 2022-09-03 11:26 | disposition home or self-care (01) ==
LOC: LAB 11:25
PROVIDERS: ATTEND Obstetrics & Gynecology
DX: Z34.90 Encounter for supervision of normal pregnancy, unspecified, unspecified trimester (principal); Z87.59 Personal history of other complications of pregnancy, childbirth and the puerperium
CPT/HCPCS: 36415; 80053; 81511; 82570; 84156; 84550

== ENCOUNTER 2022-09-18 10:27 | Outpatient (CLI) | payer MEDICAID ==
--- NOTE | 2022-09-18 17:30 | Ultrasound Report ---
PROCEDURE: OB Detailed Eval INDICATIONS: SUPERVISION OF OUTSIDE/PRIOR DATING DATA: Last menstrual period (LMP): 03/22/2022. LMP-based estimated date of delivery (MARLEN): 12/27/2022 First dating scan (date and location): 05/29/2022. Estimated date of delivery (MARLEN) from first dating scan: 01/16/2023. The below data below was generated using the ultrasound MARLEN of 01/16/2023 TECHNIQUE: Real-time scanning was performed of the fetus, with image documentation and biometric measurements. Endovaginal scanning: Not performed COMPARISON: 05/29/2022 FINDINGS: Living second trimester intrauterine with no sonographic evidence of complicatio ns. General: A single living intrauterine gestation is present. Presentation: Breech Placenta: Placental position is anterior, without previa. Amniotic fluid index: 17.2 cm, within normal limits for gestational age. heart rate: 145 beats per minute. Maternal cervical canal: 52 cm long; normal length is 2.5 cm or more. biometrics: Biparietal diameter: 5.6 cm, 23 weeks 0 days Head circumference: 20.8 cm, 22 weeks 6 days Abdominal circumference: 18.7 cm, 23 weeks 3 days Femur length: 4.2 cm, 23 weeks 3 days Estimated gestational age from initial scan: 22 weeks 6 days Composite gestational age from present scan: 23 weeks 1 day Estimated weight and percentile: 592 g, 70.4 percentile Measurement variability in biometric dating: +/- 10 days from 12-20 weeks gestation, +/- 2 weeks from 20-30 weeks gestation, +/- 3 weeks at 30 weeks gestation or later. Anatomic survey: Neuro: Ventricles are normal at less than 10 mm. Cisterna magna is normal at 3-11 mm. Cerebellum i s normal in size and morphology. Nuchal skin fold: Normal at less than 6 mm between 14 and 20 weeks gestational age. Face: Nose and lips, facial profile are normal. Spine: No evidence for spina bifida. Heart: 4-chambered heart is within normal limits. RVOT and LVOT not well seen secondary to pos ition. Diaphragm: Diaphragm is intact. Stomach: Left-sided stomach is present. Kidneys: No hydronephrosis. Normal is less than 5 mm in 2nd trimester, less than 7 mm in 3rd trimester. Cord: 3 vessel cord has orthotopic insertion. Bladder: Normal in size. Extremities: All 4 extremities are visualized. IMPRESSION: 1. Living second trimester intrauterine with no sonographic evidence of complications. Curr ent ultrasound age is 2 days greater than clinical age based on the initial first trimester ultrasoun d. 2. RVOT and LVOT not well seen. Other anatomy well visualized, within normal limits. Comment: Recommend limited follow-up ultrasound for evaluation of ventricular outflow tracts. Reviewed by: Bebeto Martin MD on 09/18/2022 5:29 PM PST Approved by: Bebeto Martin MD on 09/18/2022 5:29 PM PST Station ID: [id number]
== END 2022-09-18 10:28 | disposition home or self-care (01) ==
LOC: DI 10:27
PROVIDERS: ATTEND Obstetrics & Gynecology
DX: Z34.92 Encounter for supervision of normal pregnancy, unspecified, second trimester (principal)

== ENCOUNTER 2022-11-13 09:23 | Outpatient (CLI) | payer MEDICAID ==
[2022-11-13 12:03] LABS: HCT - HEMATOCRIT 34.2 % (37.0-47.0); HGB - HEMOGLOBIN 11.4 g/dL (12.0-16.0); MEAN CORPUSCULAR HEMOGLOBIN 29.3 pg (27.0-31.0); MEAN CORPUSCULAR HGB CONC 33.3 g/dL (32.0-36.0); MEAN CORPUSCULAR VOLUME 87.9 fL (81.0-99.0); MEAN PLATELET VOLUME 10.1 fL (7.9-10.8); RED BLOOD COUNT 3.89 10^6/uL (4.20-5.40); RED CELL DISTRIBUTION WIDTH 13.9 % (12.0-15.0); WHITE BLOOD COUNT 12.9 x10^3/uL (4.8-10.8)
[2022-11-13 12:22] LABS: CREATININE,URINE 99.4 mg/dL; PROTEIN/CREATININE RATIO,URINE 0.1 (<=0.2)
[2022-11-13 12:27] LABS: ALBUMIN 2.9 g/dL (3.2-5.5); ALBUMIN/GLOBULIN RATIO 0.7 (1.0-2.2); BILIRUBIN,TOTAL 0.4 mg/dL (0.2-1.0); CALCIUM 9.1 mg/dL (8.5-10.3); CREATININE 0.6 mg/dL (0.4-1.0); POTASSIUM 4.3 mmol/L (3.5-5.0); TOTAL PROTEIN 6.8 g/dL (6.7-8.2)
== END 2022-11-13 09:24 | disposition home or self-care (01) ==
LOC: LAB.N 09:23
PROVIDERS: ATTEND Obstetrics & Gynecology
DX: R03.0 Elevated blood-pressure reading, without diagnosis of hypertension (principal)
CPT/HCPCS: 36415; 80053; 80061; 82570; 83721; 84156; 84443; 85025; 85027

== ENCOUNTER 2022-11-20 08:36 | Outpatient (CLI) | payer MEDICAID | END 2022-11-20 08:37 | disposition home or self-care (01) | LOC: LAB.N 08:36 | PROVIDERS: ATTEND Obstetrics & Gynecology | DX: Z34.90 Encounter for supervision of normal pregnancy, unspecified, unspecified trimester (principal) | CPT/HCPCS: 36415; 82950 ==

== ENCOUNTER 2022-11-26 11:12 | Outpatient (CLI) | payer MEDICAID ==
[2022-11-26 11:33] VITALS: BP 133/78
[2022-11-26 11:40] LABS: BASOPHILS % (AUTO) 0.3 %; EOSINOPHILS % (AUTO) 0.4 %; HCT - HEMATOCRIT 32.3 % (37.0-47.0); HGB - HEMOGLOBIN 10.7 g/dL (12.0-16.0); LYMPHOCYTES # (AUTO) 2.3 10^3/uL (1.5-3.5); LYMPHOCYTES % (AUTO) 21.6 %; MEAN CORPUSCULAR HEMOGLOBIN 28.8 pg (27.0-31.0); MEAN CORPUSCULAR HGB CONC 33.1 g/dL (32.0-36.0); MEAN CORPUSCULAR VOLUME 86.8 fL (81.0-99.0); MEAN PLATELET VOLUME 9.4 fL (7.9-10.8); MONOCYTES # (AUTO) 0.7 10^3/uL (0.0-1.0); MONOCYTES % (AUTO) 6.8 %; NEUTROPHILS # (AUTO) 7.6 10^3/uL (1.5-6.6); NEUTROPHILS % (AUTO) 70.5 %; PLT - PLATELET COUNT 311 10^3/uL (130-450); RED BLOOD COUNT 3.72 10^6/uL (4.20-5.40); RED CELL DISTRIBUTION WIDTH 13.7 % (12.0-15.0); WHITE BLOOD COUNT 10.7 x10^3/uL (4.8-10.8)
[2022-11-26 11:54] LABS: ALBUMIN 2.6 g/dL (3.2-5.5); ALBUMIN/GLOBULIN RATIO 0.7 (1.0-2.2); BILIRUBIN,TOTAL 0.4 mg/dL (0.2-1.0); CALCIUM 8.9 mg/dL (8.5-10.3); CREATININE 0.4 mg/dL (0.4-1.0); POTASSIUM 3.9 mmol/L (3.5-5.0); TOTAL PROTEIN 6.5 g/dL (6.7-8.2)
[2022-11-26 11:56] LABS: CREATININE,URINE 69.9 mg/dL; PROTEIN/CREATININE RATIO,URINE 0.2 (<=0.2)
--- NOTE | 2022-11-29 18:08 | PROVIDER PROGRESS NOTE ---
- HPI Chief Complaint: Hypertension/PIH Current : Current EDU 01/16/23 Gestation 32 Weeks and 5 Days 3 Para 1 Vital Signs Temperature 98.2 F 11/26/22 11:21 Heart Rate 93 11/26/22 11:21 Respiratory Rate 16 11/26/22 11:21 Blood Pressure 133/78 H 11/26/22 11:21 Temperature 98.2 F 11/26/22 11:21 Heart Rate 93 11/26/22 11:21 Respiratory Rate 16 11/26/22 11:21 Blood Pressure 133/78 H 11/26/22 11:21 O2 Saturation If not protocol: Oxygen Flow, liters/minute - Procedures OB Procedure Performed: NST Diagnosis/Indication for NST: Gestational Hypertension NST Procedure: NST Procedure Start Date 11/26/22 Start Time 11:23 Stop Time 11:45 Vibroacoustic Stimulation Used No Patient States Movement Yes EFM: 140s, moderate variability, positive accelerations, no decelerations [place]: no contractions NST reactive/Cat 1 Performed and read 11/26/22 Service Date of procedure: 11/26/22 - Plan Plan: 27yo at 32.5w sent from office visit after second BP elevation 144/84. She had preeclampsia in her first . Denies headaches, visual changes, abdominal pain. No OB concerns. Good movement. VSS GEN: NAD CV: Regular rate Resp: Breathing unlabored Abd: nt Ext: +1 edema NST reactive Preeclampsia labs reviewed and benign, no proteinuria 27yo at 32.5w with gestational hypertension - NST reactive - Labs benign - Follow up US 12/03 ordered
== END 2022-11-26 12:25 | disposition home or self-care (01) ==
LOC: WFO 11:12 → FBP 11:13 → WFO 12:25
PROVIDERS: ATTEND Obstetrics & Gynecology
DX: O13.3 Gestational [pregnancy-induced] hypertension without significant proteinuria, third trimester (principal); Z3A.32 32 weeks gestation of pregnancy
CPT/HCPCS: 36415; 59025; 80053; 82570; 84156; 85025

== ENCOUNTER 2022-12-10 11:30 | Outpatient (CLI) | payer MEDICAID ==
[2022-12-10 11:45] LABS: HCT - HEMATOCRIT 32.2 % (37.0-47.0); HGB - HEMOGLOBIN 10.6 g/dL (12.0-16.0); MEAN CORPUSCULAR HEMOGLOBIN 28.6 pg (27.0-31.0); MEAN CORPUSCULAR HGB CONC 32.9 g/dL (32.0-36.0); MEAN CORPUSCULAR VOLUME 86.8 fL (81.0-99.0); MEAN PLATELET VOLUME 9.6 fL (7.9-10.8); RED BLOOD COUNT 3.71 10^6/uL (4.20-5.40); WHITE BLOOD COUNT 9.7 x10^3/uL (4.8-10.8)
[2022-12-10 12:01] LABS: ALBUMIN 2.6 g/dL (3.2-5.5); ALBUMIN/GLOBULIN RATIO 0.7 (1.0-2.2); BILIRUBIN,TOTAL 0.4 mg/dL (0.2-1.0); CALCIUM 8.9 mg/dL (8.5-10.3); CREATININE 0.5 mg/dL (0.4-1.0); POTASSIUM 3.9 mmol/L (3.5-5.0); TOTAL PROTEIN 6.6 g/dL (6.7-8.2)
[2022-12-10 13:02] LABS: CREATININE,URINE 61.9 mg/dL; PROTEIN/CREATININE RATIO,URINE 0.2 (<=0.2)
== END 2022-12-10 11:31 | disposition home or self-care (01) ==
LOC: LAB 11:30
PROVIDERS: ATTEND Obstetrics & Gynecology
DX: O13.3 Gestational [pregnancy-induced] hypertension without significant proteinuria, third trimester (principal)
CPT/HCPCS: 36415; 80053; 82570; 84156; 85027

== ENCOUNTER 2022-12-11 16:07 | Outpatient (CLI) | payer MEDICAID ==
[2022-12-11 16:25] VITALS: BP 138/79
--- NOTE | 2022-12-11 18:47 | PROCEDURE REPORT ---
- HPI Diagnosis/Indication for NST: Gestational Hypertension Current EDU 01/16/23 Gestation 34 Weeks and 6 Days 2 Para 1 Vital Signs Temperature 98.2 F 12/11/22 16:19 Heart Rate 91 12/11/22 16:19 Respiratory Rate 18 12/11/22 16:19 Blood Pressure 138/79 H 12/11/22 16:19 Temperature 98.2 F 12/11/22 16:19 Heart Rate 91 12/11/22 16:19 Respiratory Rate 18 12/11/22 16:19 Blood Pressure 138/79 H 12/11/22 16:19 O2 Saturation If not protocol: Oxygen Flow, liters/minute - NST Procedure NST Procedure Start Date 12/11/22 Start Time 16:14 Stop Time 16:46 Vibroacoustic Stimulation Used No Patient States Movement Yes EFM: 140, moderate variability, positive 15x15 accelerations, no decelerations [place]: no contractions NST reactive/Cat 1 Performed and read 12/11/22 - Results and Plan Findings/Impression: 27yo at 34.6w presenting for scheduled NST for gestational hypertension - NST reactive - Follow up as scheduled
== END 2022-12-11 17:00 | disposition home or self-care (01) ==
LOC: WFO 16:07 → FBP 16:09 → WFO 17:00
PROVIDERS: ATTEND Obstetrics & Gynecology
DX: O13.3 Gestational [pregnancy-induced] hypertension without significant proteinuria, third trimester (principal); Z3A.34 34 weeks gestation of pregnancy
CPT/HCPCS: 59025

== ENCOUNTER 2022-12-14 15:49 | Outpatient (CLI) | payer MEDICAID ==
[2022-12-14 16:12] VITALS: BP 129/78
--- NOTE | 2022-12-14 16:52 | PROCEDURE REPORT ---
- HPI Diagnosis/Indication for NST: Gestational Hypertension Vital Signs Temperature 98.1 F 12/14/22 16:07 Heart Rate 90 12/14/22 16:07 Respiratory Rate 20 12/14/22 16:07 Blood Pressure 129/78 12/14/22 16:07 Temperature 98.1 F 12/14/22 16:07 Heart Rate 90 12/14/22 16:07 Respiratory Rate 20 12/14/22 16:07 Blood Pressure 129/78 12/14/22 16:07 O2 Saturation If not protocol: Oxygen Flow, liters/minute - NST Procedure NST Procedure Start Time 16:14 Stop Time 16:46 EFM: 140s, moderate variability, positive 15x15 accelerations, no decelerations [place]: no contractions NST reactive/Cat 1 Performed and read on 12/14/22 - Results and Plan Plan: 27yo at 35.2w presenting for scheduled NST for gestational hypertension - Normotensive today - NST reactive - Follow up as scheduled
== END 2022-12-14 16:55 | disposition home or self-care (01) ==
LOC: WFO 15:49 → FBP 15:53 → WFO 16:55
PROVIDERS: ATTEND Obstetrics & Gynecology
DX: O13.3 Gestational [pregnancy-induced] hypertension without significant proteinuria, third trimester (principal); Z3A.35 35 weeks gestation of pregnancy
CPT/HCPCS: 59025; 99213

== ENCOUNTER 2022-12-17 08:00 | Outpatient (CLI) | payer MEDICAID | END 2022-12-17 23:59 | disposition home or self-care (01) | LOC: LAB.WC 08:00 | PROVIDERS: ATTEND Obstetrics & Gynecology | DX: Z36.85 Encounter for antenatal screening for Streptococcus B (principal) | CPT/HCPCS: 87797 ==

== ENCOUNTER 2022-12-18 12:45 | Outpatient (CLI) | payer MEDICAID ==
--- NOTE | 2022-12-18 16:54 | Ultrasound Report ---
PROCEDURE: OB F/U or Repeat INDICATIONS: GESTATIONAL HYPERTENSION OUTSIDE/PRIOR DATING DATA: Last menstrual period (LMP): 03/22/2022. LMP-based estimated date of delivery (MARLEN): 12/27/2022. First dating scan (date and location): 05/29/2022. Estimated date of delivery (MARLEN) from first dating scan: 1423. The below data below was generated using the ultrasound MARLEN of 01/16/2023 TECHNIQUE: Real-time scanning was performed of the fetus, with image documentation and biometric measurements. COMPARISON: OB ultrasound 09/18/2022 FINDINGS: General: A single living intrauterine gestation is present. Presentation: Vertex Placenta: Placental position is anterior, without previa. Amniotic fluid index: 7 cm, 3rd percentile for gestational age. There is calcification of the place nta. heart rate: 125 beats per minute. Maternal cervical canal: 4.4 cm long; normal length is 2.5 cm or more. biometrics: Biparietal diameter: 8.5 cm 34 weeks 3 days Head circumference: 6.3 cm 35 weeks 0 days Abdominal circumference: 32.8 cm 36 weeks 5 days Femur length: 6.9 cm 35 weeks 1 day Estimated gestational age from initial scan: 35 weeks 6 days Composite gestational age from present scan: 35 weeks 2 days Estimated weight and percentile: 2785 g 50th percentile Measurement variability in biometric dating: +/- 10 days from 12-20 weeks gestation, +/- 2 weeks from 20-30 weeks gestation, +/- 3 weeks at 30 weeks gestation or more. Other: Not applicable. IMPRESSION: Single live anterior with ultrasound gestational age today of 35 weeks 2 days. YOHANA currently measures 3rd percentile consistent with oligohydramnios. Close clinical and imaging fol low-up is recommended. Reviewed by: Manuela Sharma MD on 12/18/2022 4:53 PM PDT Approved by: Manuela Sharma MD on 12/18/2022 4:53 PM PDT Station ID: [id number]
== END 2022-12-18 19:00 | disposition home or self-care (01) ==
LOC: DI 12:45
PROVIDERS: ATTEND Obstetrics & Gynecology
DX: O13.3 Gestational [pregnancy-induced] hypertension without significant proteinuria, third trimester (principal); O28.3 Abnormal ultrasonic finding on antenatal screening of mother; Z3A.35 35 weeks gestation of pregnancy

== ENCOUNTER 2022-12-18 13:33 | Outpatient (CLI) | payer MEDICAID ==
--- NOTE | 2022-12-18 14:13 | PROCEDURE REPORT ---
- HPI Diagnosis/Indication for NST: Gestational Hypertension Current EDU 01/16/23 Gestation 35 Weeks and 6 Days 3 Para 1 Vital Signs Temperature 98.2 F 12/18/22 13:56 Heart Rate 79 12/18/22 13:56 Respiratory Rate 16 12/18/22 13:56 Blood Pressure 149/78 H 12/18/22 13:56 Temperature 98.2 F 12/18/22 13:56 Heart Rate 79 12/18/22 13:56 Respiratory Rate 16 12/18/22 13:56 Blood Pressure 149/78 H 12/18/22 13:56 O2 Saturation If not protocol: Oxygen Flow, liters/minute - NST Procedure NST Procedure Start Date 12/18/22 Start Time 13:40 Stop Time 14:13 Vibroacoustic Stimulation Used No Patient States Movement Yes - Results and Plan Findings/Impression: Patient is a 27-year-old -0-1-1 at 35 weeks 6 days gestation here for scheduled NST. NST Performed 12/18/2022 NST Read 12/18/2022 FHT: 130 bpm baseline, moderate variability, accelerations present, no decelerations. Reactive NST [place]: Quiescent Diagnosis Gestational hypertension 35 weeks gestation Continue with twice weekly NST.
[2022-12-18 15:25] VITALS: BP 149/78
== END 2022-12-18 14:25 | disposition home or self-care (01) ==
LOC: WFO 13:33 → FBP 13:35 → WFO 14:25
PROVIDERS: ATTEND Obstetrics & Gynecology
DX: O13.3 Gestational [pregnancy-induced] hypertension without significant proteinuria, third trimester (principal); Z3A.35 35 weeks gestation of pregnancy
CPT/HCPCS: 59025

== ENCOUNTER 2022-12-21 16:04 | Outpatient (CLI) | payer MEDICAID ==
[2022-12-21 17:02] VITALS: BP 133/77
--- NOTE | 2022-12-24 11:28 | PROCEDURE REPORT ---
- HPI Current EDU 01/16/23 Gestation 36 Weeks and 2 Days 2 Para 1 Vital Signs Temperature 98.2 F 12/21/22 16:27 Heart Rate 90 12/21/22 16:27 Respiratory Rate 17 12/21/22 16:27 Blood Pressure 126/72 12/21/22 16:27 O2 Saturation 100 12/21/22 16:27 Temperature 98.2 F 12/21/22 16:31 Heart Rate 90 12/21/22 16:27 Respiratory Rate 17 12/21/22 16:27 Blood Pressure 133/77 H 12/21/22 16:59 O2 Saturation 100 12/21/22 16:27 If not protocol: Oxygen Flow, liters/minute - NST Procedure NST Procedure Start Date 12/21/22 Start Time 16:10 Stop Time 17:45 Vibroacoustic Stimulation Used Yes Patient States Movement Yes - Results and Plan Plan: Patient is a 27-year-old -0-1-1 at 36 weeks 2 days gestation here for scheduled NST. NST Performed 12/21/2022 NST Read 12/21/2022 FHT: 135 bpm baseline, moderate variability, accelerations present, no decelerations. Could not get consistent 20-minute tracing without movement, but overall reassuring. Reactive NST at consistent portions. [place]: Quiescent Bedside BPP 03/12 Diagnosis 36 weeks gestation Gestational hypertension Continue with twice weekly NST.
== END 2022-12-21 18:20 | disposition home or self-care (01) ==
LOC: WFO 16:04 → FBP 16:05 → WFO 18:20
PROVIDERS: ATTEND Obstetrics & Gynecology
DX: O13.3 Gestational [pregnancy-induced] hypertension without significant proteinuria, third trimester (principal); Z3A.36 36 weeks gestation of pregnancy
CPT/HCPCS: 59025

== ENCOUNTER 2022-12-24 13:58 | Outpatient (CLI) | payer MEDICAID ==
[2022-12-24 14:18] LABS: BASOPHILS % (AUTO) 0.4 %; EOSINOPHILS # (AUTO) 0.1 10^3/uL (0.0-0.7); EOSINOPHILS % (AUTO) 0.5 %; HCT - HEMATOCRIT 32.1 % (37.0-47.0); HGB - HEMOGLOBIN 10.5 g/dL (12.0-16.0); LYMPHOCYTES # (AUTO) 2.3 10^3/uL (1.5-3.5); LYMPHOCYTES % (AUTO) 22.4 %; MEAN CORPUSCULAR HEMOGLOBIN 28.4 pg (27.0-31.0); MEAN CORPUSCULAR HGB CONC 32.7 g/dL (32.0-36.0); MEAN CORPUSCULAR VOLUME 86.8 fL (81.0-99.0); MEAN PLATELET VOLUME 9.9 fL (7.9-10.8); MONOCYTES # (AUTO) 0.5 10^3/uL (0.0-1.0); MONOCYTES % (AUTO) 4.9 %; NEUTROPHILS # (AUTO) 7.4 10^3/uL (1.5-6.6); NEUTROPHILS % (AUTO) 71.5 %; PLT - PLATELET COUNT 312 10^3/uL (130-450); RED CELL DISTRIBUTION WIDTH 13.8 % (12.0-15.0); WHITE BLOOD COUNT 10.4 x10^3/uL (4.8-10.8)
[2022-12-24 14:27] LABS: CREATININE,URINE 101.6 mg/dL; PROTEIN/CREATININE RATIO,URINE 0.1 (<=0.2)
[2022-12-24 14:50] LABS: ALBUMIN 2.7 g/dL (3.2-5.5); ALBUMIN/GLOBULIN RATIO 0.7 (1.0-2.2); BILIRUBIN,TOTAL 0.4 mg/dL (0.2-1.0); CALCIUM 8.8 mg/dL (8.5-10.3); CREATININE 0.7 mg/dL (0.4-1.0); POTASSIUM 3.7 mmol/L (3.5-5.0); TOTAL PROTEIN 6.6 g/dL (6.7-8.2); URIC ACID 5.3 mg/dL (2.6-7.2)
== END 2022-12-24 13:59 | disposition home or self-care (01) ==
LOC: DI 13:58
PROVIDERS: ATTEND Obstetrics & Gynecology
DX: O13.3 Gestational [pregnancy-induced] hypertension without significant proteinuria, third trimester (principal); Z3A.00 Weeks of gestation of pregnancy not specified
CPT/HCPCS: 36415; 80053; 82570; 84156; 84550; 85025

== ENCOUNTER 2022-12-26 08:12 | Inpatient (IN) | payer MEDICAID ==
[2022-12-26 08:50] LABS: BASOPHILS % (AUTO) 0.4 %; EOSINOPHILS # (AUTO) 0.1 10^3/uL (0.0-0.7); EOSINOPHILS % (AUTO) 0.7 %; HCT - HEMATOCRIT 31.7 % (37.0-47.0); HGB - HEMOGLOBIN 10.4 g/dL (12.0-16.0); LYMPHOCYTES % (AUTO) 21.8 %; MEAN CORPUSCULAR HEMOGLOBIN 28.3 pg (27.0-31.0); MEAN CORPUSCULAR HGB CONC 32.8 g/dL (32.0-36.0); MEAN CORPUSCULAR VOLUME 86.4 fL (81.0-99.0); MEAN PLATELET VOLUME 9.8 fL (7.9-10.8); MONOCYTES # (AUTO) 0.4 10^3/uL (0.0-1.0); MONOCYTES % (AUTO) 4.7 %; NEUTROPHILS # (AUTO) 6.6 10^3/uL (1.5-6.6); NEUTROPHILS % (AUTO) 72.1 %; PLT - PLATELET COUNT 299 10^3/uL (130-450); RED BLOOD COUNT 3.67 10^6/uL (4.20-5.40); RED CELL DISTRIBUTION WIDTH 14.1 % (12.0-15.0); WHITE BLOOD COUNT 9.2 x10^3/uL (4.8-10.8)
--- NOTE | 2022-12-26 08:52 | HISTORY & PHYSICAL EXAMINATION ---
Admit History - : 3 Parity: 1 : 1 Risk/History: positive: induced HTN Complications This : positive: induced HTN Smoking Status: Former smoker - Mother's Labs Mother's Blood Type: positive: A Mother's RH: positive: Positive GBS: positive: Group B Step Negative Rubella Status: positive: Immune - Other Maternal History Other Maternal History: HPI: Patient is a 27-year-old -0-1-1 at 37 weeks 0 days gestation by 6 weeks ultrasound presenting for induction of labor secondary to gestational hypertension.. She has good movement. Denies loss of fluid. No FRIAS/BV or RUQP. No vaginal bleeding. Denies nausea and vomiting. Denies urinary urgency or dysuria. All other symptoms reviewed and were negative except per HPI. Course LMP: 03/22/2022 MARLEN by LMP: 12/27/2022 Initial ultrasound: 05/29/2023, 6 weeks 6 days, not consistent with LMP Final MARLEN 01/16/2023 Problems: Obesity: Early 1 hour GTT ordered- 111 1h GTT 127 Gestational hypertension: IOL at 37 week. Sooner if indicated. Labs ordered for assessment. Consdering permanent sterility: Consents signed 11/12/22 Prepregnancy weight 191.4 BMI 35.13 A pos/ Rubella:immune VZV:NON immune Genetic Testing: NIPT Negative, XY AFP-negative (lab completed full Quad screen) FAS: Placenta anterior, RVOT and LVOT not seen Glucola: Early 1 hour GTT 111, second trimester: 127 Influenza: Declines Tdap:10/29/22 COVID: Declines GBS negative HSV:Denies in self or partner Breast pump Rx: 10/29/22 MOD: pp contraception:Likely IUD, considering BTL, consents signed. Pap: 2017, Will do Initial GC/CT: Negative PMH History of gestational hypertension PSH No prior surgeries OB History -0-1-1 1. 2011, 10 weeks, 2. 10/08/2016, 38 weeks, , male, gestational hypertension SH Denies tobacco, alcohol, drugs Family History Mother: Abnormal uterine bleeding Father: Hypertension, diabetes, hyperlipidemia, emphysema Aunt: Colon cancer Maternal grandmother: Coronary artery disease Allergies Peanuts, pollen Medications vitamins Physical exam: General: Alert, oriented, no acute distress Head: Normal cephalic atraumatic Eyes: PERRLA, extraocular motions intact. Respiratory: Normal rate of respiration. No accessory muscle use, normal respiratory effort. Cardiovascular: Regular rate and rhythm Abdomen: Gravid, nontender, nondistended Extremities: Normal range of motion Neuro: Oriented x3. Normal movements Psych: Appropriate mood and affect. Normal judgment and insight SVE: 1/50/-3 FHT: 145 beats per baseline, moderate variability, accelerations present, no decelerations. [place]: Irregular Plan 27-year-old -0-1-1 at 37 weeks 0 days gestation admitted for induction of labor secondary to gestational hypertension 1. Gestational hypertension: -Admit to L&D, admit labs, epidural at patient's request. -Induction starting with 25 mcg every 4 hours vaginally. -CBC, CMP, protein creatinine ratio pending -Blood pressure remains 140s over 90s. 2. 37 weeks gestation 3. Obesity class II, BMI 39 Meds/Allgy - Home Medications Home Medications: Ambulatory Orders Medication Instructions Recorded Confirmed No Known Home Medications 01/02/22 01/02/22 - Allergies Allergies/Adverse Reactions: Allergies Allergy/AdvReac Type Severity Reaction Status Date / Time peanut Allergy Unknown Verified 12/31/21 13:54 Plan for Labor - Plan For Labor I expect patient to be DC'd or transferred within 96 hours.: Yes
[2022-12-26] MEDS ORDERED: lidocaine 1% 20 ML MDV ID PRN (09:01)
[2022-12-26] MEDS ORDERED: OXYTOCIN/SODIUM CHLORIDE 500 ML IV PRN (09:01)
[2022-12-26] MEDS ORDERED: fentaNYL 100 MCG/2 ML VIAL IVP PRN (09:01)
[2022-12-26] MEDS ORDERED: TERBUTALINE 1 MG/ML VIAL SUBQ PRN (09:01)
[2022-12-26] MEDS ORDERED: TRANEXAMIC ACID IN NACL 1,000 MG/100 ML BAG IV PRN (09:01)
[2022-12-26] MEDS ORDERED: miSOPROStoL 200 MCG TABLET PR PRN (09:01)
[2022-12-26] MEDS ORDERED: hydrALAZINE INJ 20 MG/ML VIAL IVP PRN ×2 (09:01)
[2022-12-26] MEDS ORDERED: miSOPROStoL 200 MCG TABLET BC PRN (09:01)
[2022-12-26] MEDS ORDERED: NIFEdipine 10 MG CAPSULE PO PRN (09:01)
[2022-12-26] MEDS ORDERED: METHYLERGONOVINE 0.2 MG/ML VIAL IM PRN (09:01)
[2022-12-26] MEDS ORDERED: LABETALOL 20 MG/4 ML SYRINGE IVP PRN ×3 (09:01)
[2022-12-26] MEDS ORDERED: CARBOPROST TROMETHAMINE 250 MCG/ML AMP IM PRN (09:01)
[2022-12-26] MEDS ORDERED: OXYTOCIN 10 UNIT/ML VIAL IM PRN (09:01)
[2022-12-26] MEDS ORDERED: SODIUM CHLORIDE FLUSH 0.9% 10 ML SYRINGE IVP PRN (09:01)
[2022-12-26 09:09] LABS: ALBUMIN 2.8 g/dL (3.2-5.5); ALBUMIN/GLOBULIN RATIO 0.7 (1.0-2.2); BILIRUBIN,TOTAL 0.3 mg/dL (0.2-1.0); CALCIUM 8.8 mg/dL (8.5-10.3); CREATININE 0.6 mg/dL (0.4-1.0); POTASSIUM 3.6 mmol/L (3.5-5.0); TOTAL PROTEIN 6.7 g/dL (6.7-8.2)
[2022-12-26 09:17] LABS: CREATININE,URINE 44.3 mg/dL; PROTEIN/CREATININE RATIO,URINE 0.2 (<=0.2)
[2022-12-26] MEDS: miSOPROStoL 100 MCG TABLET VG SCH ×2 (09:29→13:25)
[2022-12-26] MEDS ORDERED: SODIUM CHLORIDE FLUSH 0.9% 10 ML SYRINGE IVP SCH (10:00)
--- NOTE | 2022-12-26 16:00 | PROVIDER PROGRESS NOTE ---
Labor Progress Note - Uterine Monitoring Uterine Monitoring Mode: positive: External toco Contraction Frequency (min/apart): 2-4 Contraction Intensity: positive: Mild to moderate Uterine Resting Tone: positive: Soft - Monitoring Monitor Mode: positive: External ultrasound Heart Rate Baseline: 135 Heart Rate Variability: positive: Moderate (6-25 bmp) Accelerations: positive: Present, 15x15 Decelerations: positive: None Strip Review: positive: Category I - Vaginal Exam Dilation (in cm): 0 Effacement (%): 0 Station: -3 - Labor Progress Note Labor Progress Note/Additional Text: Feeling well still. Some contractions felt. Continue induction with misoprostol.
--- NOTE | 2022-12-26 17:41 | PROVIDER PROGRESS NOTE ---
Labor Progress Note - Uterine Monitoring Uterine Monitoring Mode: positive: External toco Contraction Frequency (min/apart): 2-4 Contraction Intensity: positive: Mild to moderate - Monitoring Heart Rate Baseline: 145 Heart Rate Variability: positive: Moderate (6-25 bmp) Accelerations: positive: Present, 15x15 Decelerations: positive: None Strip Review: positive: Category I - Vaginal Exam Dilation (in cm): 2 Effacement (%): 60 Station: -2 Cervical Position: Posterior - Labor Progress Note Labor Progress Note/Additional Text: Discussed frequency of contractions and recommended Paiz balloon cervical ripening balloon to patient. She is amenable and this was placed on difficulty. 80 mL uterine and 40 mL external. Patient tolerated procedure well.
[2022-12-26] MEDS: LACTATED RINGERS 1,000 ML IV SCH (18:38)
[2022-12-26] MEDS ORDERED: OXYTOCIN/SODIUM CHLORIDE 500 ML IV SCH (19:00)
[2022-12-26] MEDS ORDERED: ROPIVACAINE 0.2% 200 MG/100 ML BAG EP ONE (19:04)
[2022-12-26] MEDS ORDERED: ePHEDrine 50 MG/ML VIAL IVP PRN (19:52)
[2022-12-26] MEDS ORDERED: NALOXONE 0.4 MG/ML VIAL IVP PRN (19:52)
[2022-12-26] MEDS ORDERED: ROPIVACAINE 0.2% 200 MG/100 ML BAG EP PRN (19:52)
--- NOTE | 2022-12-26 19:52 | ANESTHESIA ---
Pre-Anesthesia VS, & Labs - Diagnosis Active labor - Procedure vaginal delivery Vital Signs: Temp Pulse Resp BP Pulse Ox O2 Flow Rate 36.6 C 89 16 148/96 H 12/26/22 08:58 12/26/22 08:58 12/26/22 08:58 12/26/22 08:58 Height: 5 ft 2 in Weight (kg): 98.43 kg Body Mass Index: 39.6 BMI Classification: Obese - NPO Last Fluid Intake: clear liquids - Is Patient ?: Yes - Lab Results Current Lab Results: Laboratory Tests 12/26/22 08:35: Sodium 137, Potassium 3.6, Chloride 108, Carbon Dioxide 20 L, Anion Gap 9.0, BUN 7, Creatinine 0.6, Estimated GFR (MDRD) 120, Glucose 117 H, Calcium 8.8, Total Bilirubin 0.3, AST 22, ALT 14, Alkaline Phosphatase 135 H, Total Protein 6.7, Albumin 2.8 L, Globulin 3.9, Albumin/Globulin Ratio 0.7 L 12/26/22 08:35: WBC 9.2, RBC 3.67 L, Hgb 10.4 L, Hct 31.7 L, MCV 86.4, MCH 28.3, MCHC 32.8, RDW 14.1, Plt Count 299, MPV 9.8, Neut # (Auto) 6.6, Lymph # (Auto) 2.0, [place] # (Auto) 0.4, Eos # (Auto) 0.1, Baso # (Auto) 0.0, Absolute Nucleated RBC 0.00, Nucleated RBC % 0.0 12/26/22 08:35: Blood Type A POSITIVE, Antibody Screen NEGATIVE Fish Bones: 12/26/22 08:35 12/26/22 08:35 Home Medications and Allergies Active Medications Carboprost Tromethamine (Carboprost Tromethamine 250 Mcg/Ml Amp) 250 mcg IM .ONCE PRN PRN Reason: Hemorrhage Fentanyl (Fentanyl 100 Mcg/2 Ml Vial) 50 mcg IVP Q1H PRN PRN Reason: Severe Pain (score 7-10) Hydralazine HCl (Hydralazine Inj 20 Mg/Ml Vial) 10 mg IVP .ONCE PRN; Protocol PRN Reason: SBP> or= 160 OR DBP> or= 110 Hydralazine HCl (Hydralazine Inj 20 Mg/Ml Vial) 5 - 10 mg IVP Q20M PRN; Protocol PRN Reason: SBP> or= 160 OR DBP> or= 110 Oxytocin/Sodium Chloride (Pitocin/Sodium Chloride) 500 mls @ 999 mls/hr IV PRN PRN; Protocol PRN Reason: POST- HEMORR PREVENTION Tranexamic Acid (Tranexamic 1,000 Mg/100ml-Nacl) 1,000 mg in 100 mls @ 600 mls/hr IV Q30M PRN PRN Reason: EBL >1200mL and within 3hr Lactated Ringer's (Lr) 1,000 mls @ 125 mls/hr IV .Q8H [facility] Last Admin: 12/26/22 18:38 Dose: 125 mls/hr Oxytocin/Sodium Chloride (Pitocin/Sodium Chloride) 500 mls @ 1 mls/hr IV TITR ULISSES; Protocol Last Admin: 12/26/22 18:38 Dose: 2 milliunit/min, 2 mls/hr Labetalol HCl (Labetalol 20 Mg/4 Ml Syringe) 20 mg IVP .ONCE PRN; Protocol PRN Reason: SBP> or= 160 OR DBP> or= 110 Labetalol HCl (Labetalol 20 Mg/4 Ml Syringe) 20 - 80 mg IVP Q10M PRN; Protocol PRN Reason: SBP> or= 160 OR DBP> or= 110 Labetalol HCl (Labetalol 20 Mg/4 Ml Syringe) 20 - 40 mg IVP Q10M PRN; Protocol PRN Reason: SBP> or= 160 OR DBP> or= 110 Lidocaine HCl (Lidocaine 1% 20 Ml Mdv) 20 ml ID .ONCE PRN PRN Reason: PERINEAL REPAIR Stop: 12/29/22 09:01 Methylergonovine Maleate (Methylergonovine 0.2 Mg/Ml Vial) 0.2 mg IM .ONCE PRN PRN Reason: Hemorrhage Misoprostol (Misoprostol 100 Mcg Tablet) 25 mcg VG Q4H [facility] Last Admin: 12/26/22 13:25 Dose: 25 mcg Misoprostol (Misoprostol 200 Mcg Tablet) 600 mcg BC .ONCE PRN PRN Reason: Hemorrhage Misoprostol (Misoprostol 200 Mcg Tablet) 800 mcg UT .ONCE PRN PRN Reason: Hemorrhage Nifedipine (Nifedipine 10 Mg Capsule) 10 - 20 mg PO Q20M PRN; Protocol PRN Reason: SBP> or= 160 OR DBP> or= 110 Oxytocin (Oxytocin 10 Unit/Ml Vial) 10 unit IM .ONCE PRN PRN Reason: Step One if no IV access. Sodium Chloride (Sodium Chloride Flush 0.9% 10 Ml Syringe) 10 ml IVP Q8H ULISSES Sodium Chloride (Sodium Chloride Flush 0.9% 10 Ml Syringe) 10 ml IVP PRN PRN PRN Reason: NEEDED PER PROVIDER ORDERS Terbutaline Sulfate (Terbutaline 1 Mg/Ml Vial) 0.25 mg SUBQ .ONCE PRN PRN Reason: Tachystole No Known Home Medications 01/02/22 Allergies/Adverse Reactions: Allergies Allergy/AdvReac Type Severity Reaction Status Date / Time peanut Allergy Unknown Verified 12/31/21 13:54 Anes History & Medical History - Anesthetic History Family history of Anesthesia Complications: Denies Family history of Malignant Hyperthermia: Denies - Medical History Cardiovascular: reports: None Pulmonary: reports: None Gastrointestinal: reports: None Urinary: reports: None Neuro: reports: None Musculoskeletal: reports: None Endocrine/Autoimmune: reports: None Blood Disorders: reports: None Skin: reports: None Smoking Status: Former smoker Psychosocial: reports: No issues indicated History of Cancer?: No - Obstetrical History : 3 Parity: 1 Events: reports: induced HTN Complications: reports: induced HTN Exam General: Alert, Oriented x3, Cooperative, No acute distress Dental: WNL Mouth Openin Fingerbreadth Neck Mobility: Normal Mallampati classification: II Thyromental Distance: 4-6 cm Mental/Cognitive Status: Alert/Oriented X3, Normal for patient Plan Anesthesia Type: Epidural Consent for Procedure(s) Verified and Reviewed: Yes Code Status: Attempt Resuscitation ASA classification: 2-Mild systemic disease Is this case an emergency?: No
[2022-12-27] MEDS: LACTATED RINGERS 1,000 ML IV SCH (02:10)
[2022-12-27] MEDS ORDERED: SIMETHICONE CHEW 80 MG TABLET PO PRN (06:13)
--- NOTE | 2022-12-27 06:17 | DELIVERY NOTE ---
Delivery Note - Labor Labor: positive: Augmented by ARM, Augmented by oxytocin - Delivery Method Delivery Method: positive: Spontaneous vaginal delivery - Cervical Ripening Method Cervical Ripening Method: positive: Misoprostil - Presentation Presentation: positive: MARTA - right occiput anterior - Nuchal Cord Nuchal Cord: positive: None - Anesthetic Anesthetic Type: - Amniotic Fluid Description Amniotic Fluid Description: positive: Clear, Bloody (With pushing) - Laceration Laceration: positive: None - Delivery Outcome Delivery Outcome: positive: Livebirth - [place] : positive: Placed in direct skin contact with mother, [place] used sex: positive: Male - Cord Cord: positive: 3 vessels - Placenta Placenta: positive: Intact - Estimated Blood Loss Estimated Blood Loss (in cc): 250 - Post Delivery Events Post Delivery Events: positive: No post delivery events - Delivery Comments (Free Text/Narrative) Delivery Comments (Free Text/Narrative): Preoperative Diagnoses 37 weeks gestation Gestational hypertension Obesity class II BMI of 39 Postoperative Diagnoses Same Delivery of live mercado Patient was admitted for delivery at 37 weeks for gestational hypertension. She received 1 dose of misoprostol followed by a cervical ripening balloon with oxytocin. She progressed to complete and +1 station and had an amniotomy performed with moderate amount of clear fluid. She started pushing and had some bloody fluid with pushing. Delivery Summary: Patient was placed in the dorsal lithotomy position. Upon maternal pushing the head was delivered atraumatically followed by the anterior shoulder, posterior shoulder, then the remainder of the infant's body. A male was delivered w ith APGARS of 9 at 1 minute and 9 at 5 minutes. The infant was placed on its mother's chest . After the cord finished pulsating, the umbilical cord was clamped times two and cut. The placenta delivered intact with three vessel cord. Placenta was not sent to pathology. Thirty units of Pitocin were added to the IV fluid and allowed to run freely. Uterine massage was performed until uterus was deemed firm. Upon inspection of the perineum, vagina and cervix were intact. Uterus again massaged and found to be firm. Needle and sponge counts were correct. Patient was stable and allowed to recover in L&D room. was stable and remained in room with mother. weight is pending at this time.
[2022-12-27] MEDS ORDERED: LACTATED RINGERS 1,000 ML IV SCH (07:00)
[2022-12-27] MEDS: ACETAMINOPHEN 500 MG TABLET PO SCH ×2 (08:22→16:00)
[2022-12-27] MEDS: IBUPROFEN 600 MG TABLET PO SCH ×3 (08:23→22:41)
[2022-12-27] MEDS: DOCUSATE SODIUM 100 MG CAPSULE PO PRN ×2 (08:23→22:37)
[2022-12-28] MEDS: ACETAMINOPHEN 500 MG TABLET PO SCH ×2 (00:02→08:10)
[2022-12-28] MEDS: IBUPROFEN 600 MG TABLET PO SCH ×2 (04:14→11:14)
--- NOTE | 2022-12-28 05:12 | Discharge Plan ---
Discharge Plan Problem Reviewed?: Yes Disposition: Home, Self Care Condition: Good Diet: Regular Instruction Topics: Vaginal After, Depression No Smoking: If you smoke, Please STOP! Call for help. Follow-up with: Akash Jennings MD [Provider Admit Priv/Credential] -
--- NOTE | 2022-12-28 05:15 | DISCHARGE SUMMARY ---
Discharge Summary Admit Date: 12/26/22 Discharge Date: 12/28/22 Discharging Provider: Akash Jennings MD Code Status: Attempt Resuscitation Condition at Discharge: Good Discharge Disposition: 01 Home, Self Care - DIAGNOSES Admission Diagnoses: 37-weeks gestation Gestational Hypertension Discharge Diagnoses with Status of Each Condition: 37-weeks gestation Gestational Hypertension Delivery of live, mercado - HPI History of Present Illness: No acute events. Breast feeding going well. Bonding with baby. Voiding spontaneously. Passing gas. No dizziness. Pain well controlled. Discussed depression and warning signs. Has good support at home. - HOSPITAL COURSE Hospital Course: Patient was admitted at 37 weeks for gestational hypertension and had an induction of labor. She received misoprostol followed by a cervical ripening balloon complimented with oxytocin. She progressed to complete and had AROM with pushing. She delivered a live mercado without complication. course was unremarkable and she was discharged on day 1. Weight 2948g - ALLERGIES Allergies/Adverse Reactions: Allergies Allergy/AdvReac Type Severity Reaction Status Date / Time peanut Allergy Unknown Verified 12/31/21 13:54 - MEDICATIONS Home Medications: Ambulatory Orders Medication Instructions Recorded Confirmed No Known Home Medications 01/02/22 01/02/22 - PHYSICAL EXAM AT DISCHARGE General Appearance: positive: No acute distress, Alert Respiratory: positive: No respiratory distress Peripheral Pulses: positive: 2+ Abdomen: positive: Non-tender, Other (Uterus firm, below umbilicus. ) Skin: positive: Color nml Extremities: positive: Non-tender, Full ROM Neurologic/Psychiatric: positive: Oriented x3, CN's nml (2-12), Motor nml - LABS Result Diagrams: 12/26/22 08:35 12/26/22 08:35 - FOLLOW UP Follow Up: With Akash Jennings at [facility] in one week - TIME SPENT Time Spent in Discharge (Minutes): 20
[2022-12-28] MEDS: DOCUSATE SODIUM 100 MG CAPSULE PO PRN (08:11)
[2022-12-28 12:33] VITALS: BP 133/77
--- NOTE | 2022-12-28 15:33 | Labor Flowsheet ---
Labor Flowsheet Datetime Report Generated by CPN: 12/28/2022 15:33 Datetime: 12/28/2022 12:28 VITAL SIGNS NBP Sys/Christie/Mean (mmHg): 133 : 77 : 90 Pulse: 78 Datetime: 12/28/2022 07:10 SpO2 (%): 99 Datetime: 12/27/2022 08:00 Stage of : Recovery Respirations: 16 Temperature (C): 36.4 Temperature Route: Oral Datetime: 12/27/2022 07:45 LaborFlag: Labor Datetime: 12/27/2022 06:45 PAIN Pain Scale: 0 Datetime: 12/27/2022 05:49 Medication Comments: pitocin bolus started Stage 2 Comments: placenta delivered Datetime: 12/27/2022 05:32 STAGE 2 Pushing: Coached on Pushing Pushing Position: Pushing with Contractions Pushing Progress: Descent with Pushing Datetime: 12/27/2022 05:30 Membrane Status: Ruptured Membranes Rupture Method: Artificial Amniotic Fluid Color: Clear Amniotic Fluid Amount: Moderate Amniotic Fluid Odor: Normal Datetime: 12/27/2022 05:29 UTERINE ACTIVITY Monitor Mode: External Frequency (min): 2-3 Quality: Moderate Duration (sec): 60-80 Resting Tone (Palpate): Relaxed ASSESSMENT A Monitor Mode: External US FHR Baseline Rate : 145 Variability: Minimal - Undetectable to <=5 bpm Accelerations: None Decelerations: Early; Late Category: Category II Datetime: 12/27/2022 05:18 Comments: RN at bedside continually monitoring FHR/US Datetime: 12/27/2022 05:06 VAGINAL EXAM Dilatation (cm): 10.0 Effacement (%): 100 Station: 0 Exam by: iván royal RN Vaginal Bleeding: Normal Show Vaginal Exam Comments: bulging bag Datetime: 12/27/2022 05:03 COMMUNICATION Communication: RN at Bedside; Call/Page Placed to Provider Notification Reason: Status Update Communication Comments: Provider notified patient complete. Requested for delivery Datetime: 12/27/2022 05:01 Cervical Ripening Agents: Paiz Balloon; Cytotec @ Datetime: 12/27/2022 05:00 Pattern: Normal: <= 5 Contractions in 10 Minutes Datetime: 12/27/2022 04:30 Pitocin Checklist: At Least 1 Acceleration of 15 bpm x 15 Seconds in 30 Minutes or Adequate Variabi lity; No More than 1 Late Deceleration Occurred in Past 30 Minutes; No More than 2 Variable Decelerat ions > 60 Seconds in Duration and decreasing >60 bpm in 30 minutes; No More than 5 Uterine Contractio ns in 10 Minutes for any 20 Minute Interval; Uterus Palpates Soft between Contractions Datetime: 12/27/2022 04:01 MEDICATIONS Pitocin (milliunits): Decreased to @ 2 Patient Position/Activity: Right Lateral Datetime: 12/27/2022 04:00 Actions for Decelerations: Side to Side Datetime: 12/27/2022 03:34 Patient Care Comments: peant ball between knees Datetime: 12/27/2022 02:10 PATIENT CARE IV/Blood Work: New IV Bag Hung Hygiene: [facility] Datetime: 12/27/2022 01:00 FHR Baseline Changes: No Baseline Change Datetime: 12/26/2022 22:15 Monitor Interventions for UA: [place] Adjusted Datetime: 12/26/2022 21:30 Contraction Comments: unable to determine duration due to patient positioning Datetime: 12/26/2022 20:25 I/O Interventions: Paiz Cath Inserted Datetime: 12/26/2022 19:27 Pain Presence: None/Denies Pain Relief Measures: Epidural Given Datetime: 12/26/2022 19:26 Epidural Procedure Other: Pump Started Datetime: 12/26/2022 19:18 Monitor Interventions for FHR: Ultrasound Adjusted Epidural Procedure: Loading Dose Datetime: 12/26/2022 19:10 MATERNAL ASSESSMENT Level of Consciousness: Alert DTR's/Clonus: DTRs 2+; No Clonus Headache: Denies Breath Sounds, Left: Clear and Equal Breath Sounds, Right: Clear and Equal Nausea/Vomiting: Denies RUQ Epigastric Pain: Denies Datetime: 12/26/2022 19:07 PROCEDURE TIME OUT Procedure Verify: Correct Patient Position ANESTHESIA Epidural Positioning: Sitting Datetime: 12/26/2022 18:42 Pain Coping: Requesting Pain Medication or Epidural Datetime: 12/26/2022 13:33 Cervix, Consistency: Soft Cervix, Position: Posterior Datetime: 12/26/2022 12:33 Vital Sign Comments: Lateral Up Datetime: 12/26/2022 12:25 Provider Notified (Name): Dr. Akash Jennings Datetime: 11/26/2022 12:09 Membranes Ruptured Date/Time: 12/27/2022 05:30
== END 2022-12-28 14:30 | disposition home or self-care (01) | DRG 807 ==
LOC: WFO 08:12 → FBP 08:14 → WFO 09:00 → FBP 09:01
PROVIDERS: ADMIT Obstetrics & Gynecology; ATTEND Obstetrics & Gynecology
PROC: 3E0P7VZ Introduction of Hormone into Female Reproductive, Via Natural or Artificial Opening (ICD-10-PCS; principal; 2022-12-26)
PROC: 0U7C7ZZ Dilation of Cervix, Via Natural or Artificial Opening (ICD-10-PCS; 2022-12-26)
PROC: 10E0XZZ Delivery of Products of Conception, External Approach (ICD-10-PCS; 2022-12-27)
PROC: 10907ZC Drainage of Amniotic Fluid, Therapeutic from Products of Conception, Via Natural or Artificial Opening (ICD-10-PCS; 2022-12-27)
DX: O13.4 Gestational [pregnancy-induced] hypertension without significant proteinuria, complicating childbirth (principal); Z37.0 Single live birth; Z3A.37 37 weeks gestation of pregnancy; O99.214 Obesity complicating childbirth
CPT/HCPCS: 80053; 82570; 84156; 85025; 86850; 86900; 86901; A9270; J7120

== ENCOUNTER 2023-01-02 16:21 | Outpatient (CLI) | payer MEDICAID ==
[2023-01-02 16:36] LABS: HCT - HEMATOCRIT 36.4 % (37.0-47.0); HGB - HEMOGLOBIN 11.9 g/dL (12.0-16.0); MEAN CORPUSCULAR HEMOGLOBIN 28.7 pg (27.0-31.0); MEAN CORPUSCULAR HGB CONC 32.7 g/dL (32.0-36.0); MEAN CORPUSCULAR VOLUME 87.9 fL (81.0-99.0); MEAN PLATELET VOLUME 8.8 fL (7.9-10.8); RED BLOOD COUNT 4.14 10^6/uL (4.20-5.40); RED CELL DISTRIBUTION WIDTH 13.8 % (12.0-15.0); WHITE BLOOD COUNT 10.5 x10^3/uL (4.8-10.8)
[2023-01-02 16:45] LABS: CREATININE,URINE 49.4 mg/dL; MICROALBUM/CREATININE RATIO,UR 36.4 ug/mg (<30.0); MICROALBUMIN,URINE 1.8 mg/dL (0-300.0)
[2023-01-02 16:46] LABS: ALBUMIN 3.2 g/dL (3.2-5.5); ALBUMIN/GLOBULIN RATIO 0.7 (1.0-2.2); BILIRUBIN,TOTAL 0.4 mg/dL (0.2-1.0); CALCIUM 8.8 mg/dL (8.5-10.3); CREATININE 0.6 mg/dL (0.4-1.0); TOTAL PROTEIN 7.5 g/dL (6.7-8.2)
[2023-01-02 17:27] LABS: PROTEIN/CREATININE RATIO,URINE 0.3 (<=0.2)
== END 2023-01-02 16:22 | disposition home or self-care (01) ==
LOC: LAB 16:21
PROVIDERS: ATTEND Obstetrics & Gynecology
DX: R03.0 Elevated blood-pressure reading, without diagnosis of hypertension (principal)
CPT/HCPCS: 36415; 80053; 82043; 82570; 84156; 85027

== ENCOUNTER 2023-01-08 15:46 | Emergency (ER) | payer MEDICAID ==
[2023-01-08 15:56] VITALS: BP 131/88
[2023-01-08 16:11] LABS: RAPID STREP SCREEN POSITIVE (Negative)
--- NOTE | 2023-01-08 16:30 | ED Physician Documentation ---
PD HPI URI - Stated complaint Stated Complaint: THROAT PX/DIZZY - Chief complaint Chief Complaint: Heent - History obtained from History obtained from: Patient - History of Present Illness Timing - onset: How many days ago (2-3) Contributing factors: No: Sick contact, Immunocompromised Similar symptoms before: Has not had sx before Recently seen: [facility] ([facility] for vaginal discharge and had vag PCR test done. 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 : None HEENT: None Psych: Depression, Anxiety, Panic attacks Musculoskeletal: None Derm: None - Past Surgical History Past Surgical History: No - Present Medications Home Medications: Ambulatory Orders Medication Instructions Recorded Confirmed Penicillin V Potassium 500 mg PO Q6HR 7 Days #28 tablet 01/08/23 - Allergies Allergies/Adverse Reactions: Allergies Allergy/AdvReac Type Severity Reaction Status Date / Time peanut Allergy Unknown Verified 01/08/23 15:54 - Social History Does the pt smoke?: No Smoking Status: Former smoker Does the pt drink ETOH?: No Does the pt have substance abuse?: No - Immunizations Immunizations are current?: No Immunizations: Other immun not current - POLST Patient has POLST: No PD ED PE NORMAL - Vitals Vital signs reviewed: Yes - General General: Alert and oriented X 3, No acute distress, Well developed/nourished - HEENT HEENT: No: Pharynx benign (redness with some swelling of both tonsils. Minimal exudate. No peritonsillar edema. ) - Neck Neck: Supple, no meningeal sign, Other (mild anterior adenopathy. ) - Cardiac Cardiac: RRR, No murmur - Respiratory Respiratory: Clear bilaterally - Derm Derm: Normal color, Warm and dry, No rash Results - Vitals Vitals: Vital Signs - 24 hr 01/08/23 15:49 Temperature 36.1 C L Heart Rate 94 Respiratory 16 Rate Blood Pressure 131/88 H O2 Saturation 96 Oxygen O2 Source Room air - Labs Labs: Laboratory Tests 01/08/23 15:55 Group A Strep Rapid POSITIVE H PD Medical Decision Making - ED course Complexity details: considered differential (consider strep throat vs viral. ), d/w patient, d/w sr solutions consultant (Pediatrics - who said for mom to watch child but would not give prophylactic abx as Group A strep in neonates is very uncommon.) Departure - Departure Disposition: 01 Home, Self Care Clinical Impression: Acute streptococcal pharyngitis Condition: Stable Record reviewed to determine appropriate education?: Yes Follow-Up: Akash Jennings MD [Primary Care Provider] - Prescriptions: Penicillin V Potassium 500 mg PO Q6HR 7 Days #28 tablet Comments: Your rapid strep test is positive. We can treat it with penicillin 4 times daily for the next week. Stay well-hydrated. You will be considered noninfectious after the first 24 hours on antibiotics but please continue for the full duration. Be attentive to your and see if there is any fussiness or poor nursing or other concerns. I did talk with the floatman on-call and we typically would not preventatively treat even the newborns. But just watch for symptoms. Its fairly unlikely and uncommon for a to actually get strep throat. That said certainly avoid direct mouth to face contact as much as he can now and good handwashing etc. The infectivity is well reduced after 24 hours on antibiotics. For you drink lots of fluids and Tylenol ibuprofen are fine. Tylenol is preferable with breast-feeding the but both are okay. I sent your prescription to [facility] pharmacy. Discharge Date/Time: 01/08/23 17:12
[2023-01-08] MEDS ORDERED: PENICILLIN VK 250 MG TABLET PO STA (16:58)
== END 2023-01-08 17:12 | disposition home or self-care (01) ==
LOC: ED 15:46
DX: O99.53 Diseases of the respiratory system complicating the puerperium (principal); J02.0 Streptococcal pharyngitis; O99.893 Other specified diseases and conditions complicating puerperium; N89.8 Other specified noninflammatory disorders of vagina; Z87.891 Personal history of nicotine dependence
CPT/HCPCS: 81514; 87430; 99283; A9270

== ENCOUNTER 2023-01-08 16:20 | Outpatient (CLI) | payer MEDICAID ==
[2023-01-09 20:38] LABS: BACTERIAL VAGINOSIS DNA NEGATIVE (NEGATIVE); CANDIDA GLABRATA DNA NEGATIVE (NEGATIVE); CANDIDA GROUP DNA NEGATIVE (NEGATIVE); CANDIDA KRUSEI DNA NEGATIVE (NEGATIVE); TRICHOMONAS VAGINALIS DNA NEGATIVE (NEGATIVE)
== END 2023-01-08 23:59 | disposition home or self-care (01) ==
LOC: LAB.WC 16:20
PROVIDERS: ATTEND Nurse Practitioner
DX: N89.8 Other specified noninflammatory disorders of vagina (principal)
CPT/HCPCS: 81514

== ENCOUNTER 2023-02-06 13:33 | Emergency (ER) | payer MEDICAID ==
[2023-02-06 13:50] VITALS: BP 144/85
[2023-02-06 14:02] LABS: RAPID STREP SCREEN POSITIVE (Negative)
--- NOTE | 2023-02-06 14:30 | ED Physician Documentation ---
History of Present Illness - Stated complaint Stated Complaint: SWOLLEN THROAT - Chief complaint Chief Complaint: Heent - Additonal information Additional information: Patient 27-year-old female presenting to the emergency department with sore throat, earache x4 days. Denies fever, chills. 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 : None HEENT: None Psych: Depression, Anxiety, Panic attacks Musculoskeletal: None Derm: None - Past Surgical History Past Surgical History: No - Present Medications Home Medications: Ambulatory Orders Medication Instructions Recorded Confirmed Amox/Clav 875/125 [Augmentin 1 tablet PO Q12H 10 Days #20 tablet 02/06/23 875/125 Tab] - Allergies Allergies/Adverse Reactions: Allergies Allergy/AdvReac Type Severity Reaction Status Date / Time peanut Allergy Unknown Verified 02/06/23 13:48 - Social History Does the pt smoke?: No Smoking Status: Former smoker Does the pt drink ETOH?: No Does the pt have substance abuse?: No - Immunizations Immunizations are current?: No Immunizations: Other immun not current - POLST Patient has POLST: No PD ED PE NORMAL - General General: Alert and oriented X 3, No acute distress - HEENT HEENT: Other (Positive tonsillar exudates, no uvular deviation, sublingual elevation or tracheal mobility) - Neck Neck: Supple, no meningeal sign, No bony TTP, No JVD. No: No adenopathy (Tender jugulodigastric adenopathy) - Cardiac Cardiac: RRR, No murmur, No gallop - Abdomen Abdomen: Normal bowel sounds - Female Female : Deferred - Rectal Rectal: Deferred Results - Vitals Vitals: Vital Signs - 24 hr 02/06/23 13:41 Temperature 36.6 C Heart Rate 79 Respiratory 17 Rate Blood Pressure 144/85 H O2 Saturation 98 Oxygen O2 Source Room air - Labs Labs: Laboratory Tests 02/06/23 13:40 Group A Strep Rapid POSITIVE H PD Medical Decision Making - ED course Complexity details: reviewed results, d/w patient ED course: Patient with positive strep swab, sore throat and other indications of strep pharyngitis. Treated with amoxicillin here in the emergency department. Prescription sent to preferred pharmacy. Encouraged follow-up with primary care. Departure - Departure Disposition: 01 Home, Self Care Clinical Impression: Strep pharyngitis Instructions: ED Strep Pharyngitis Conf Prescriptions: Amox/Clav 875/125 [Augmentin 875/125 Tab] 1 tablet PO Q12H 10 Days #20 tablet Comments: Thank you for allowing us to care for you today would be general. Today in the emergency department you tested positive for strep pharyngitis. I have sent a prescription to your preferred pharmacy, [facility] in [place].Recommend increasing your intake and fiber for fluids and natural probiotics while on antibiotics. Please follow-up with your primary care doctor as needed. If anytime you develop any new or worsening symptoms please do not hesitate to return.
[2023-02-06] MEDS ORDERED: HYDROcod/ACETAM 5/325 MG TABLET PO STA (14:40)
[2023-02-06] MEDS ORDERED: AMOX/CLAV 875 MG/125 MG TABLET PO STA (14:45)
[2023-02-06] MEDS ORDERED: ACETAMINOPHEN 325 MG TABLET PO STA (14:46)
== END 2023-02-06 15:35 | disposition home or self-care (01) ==
LOC: ED 13:33
DX: J02.0 Streptococcal pharyngitis (principal); Z87.891 Personal history of nicotine dependence
CPT/HCPCS: 87430; 99283; A9270

== ENCOUNTER 2023-08-11 11:10 | Emergency (ER) | payer MEDICAID ==
--- NOTE | 2023-08-11 12:39 | XRAY Report ---
PROCEDURE: Ankle 3+V LT INDICATIONS: ankle inj TECHNIQUE: 3 views of the ankle were acquired. COMPARISON: None. FINDINGS: Bones: No fractures or dislocations. Ankle mortise is normally aligned. No suspicious bony lesions . An accessory ossicle is seen, an os trigonum. Soft tissues: No tibiotalar joint effusion. Achilles tendon appears normal. IMPRESSION: No acute bony abnormality is seen on these plain films. Reviewed by: Tommie Enciso MD on 08/11/2023 11:38 AM [facility] Approved by: Tommie Enciso MD on 08/11/2023 11:38 AM [facility] Station ID: [id number]
--- NOTE | 2023-08-11 12:45 | ED Physician Documentation ---
PD HPI LOWER EXT INJURY - Stated complaint Stated Complaint: LFT ANKLE PX - Chief complaint Chief Complaint: Ext Problem - History obtained from History obtained from: Patient - Additional information Additional information: Initially injured her left ankle falling on the stairs 4 weeks ago and then reinjured it with an inversion injury 2 weeks ago. She has a lot of pain laterally when she walks. No other injuries. 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 : None HEENT: None Psych: Depression, Anxiety, Panic attacks Musculoskeletal: None Derm: None - Past Surgical History Past Surgical History: No - Present Medications Home Medications: Ambulatory Orders Medication Instructions Recorded Confirmed Amox/Clav 875/125 [Augmentin 1 tablet PO Q12H 10 Days #20 tablet 02/06/23 875/125 Tab] - Allergies Allergies/Adverse Reactions: Allergies Allergy/AdvReac Type Severity Reaction Status Date / Time peanut Allergy Unknown Verified 02/06/23 13:48 - Social History Does the pt smoke?: No Smoking Status: Never smoker Does the pt drink ETOH?: No Does the pt have substance abuse?: No - Immunizations Immunizations are current?: No Immunizations: Other immun not current - POLST Patient has POLST: No PD ED PE NORMAL - Vitals Vital signs reviewed: Yes - General General: Alert and oriented X 3, No acute distress - Extremities Extremities: Other (Left ankle is visibly normal with mild tenderness over the ATFL more than the malleoli. No foot or proximal fibular tenderness.) - Neuro Neuro: Alert and oriented X 3, Normal speech Results - Vitals Vitals: Vital Signs - 24 hr 08/11/23 11:35 Temperature 36.8 C Heart Rate 74 Respiratory 15 Rate Blood Pressure 141/86 H O2 Saturation 98 Oxygen O2 Source Room air - Rads (name of study) Three-view x-ray of the left ankle is negative. Relevant Findings:: Final report received, EMP independent interpretation of test PD Medical Decision Making - ED course ED course: Left ankle sprain with reinjury. Placed in a Aircast and counseled on the need to prevent reinjury's and conservative care as well as follow-up precautions. Departure - Departure Disposition: 01 Home, Self Care Clinical Impression: Left ankle sprain Qualifiers: Encounter type: initial encounter Involved ligament of ankle: anterior talofibular ligament Qualified Code(s): S93.492A - Sprain of other ligament of l eft ankle, initial encounter Condition: Good Record reviewed to determine appropriate education?: Yes Instructions: ED Sprain Ankle Comments: As discussed the x-rays are looking okay and it seeming like an ankle sprain with a reinjury. Wear the air splint when up and around to prevent reinjuries and wear very supportive shoes. Tylenol and/or ibuprofen as needed for pain. Follow-up with your doctor in 2 weeks if not improving. Return if worse. Forms: PCP List, Activity restrictions
[2023-08-11 13:27] VITALS: BP 133/87; O2SAT 100
== END 2023-08-11 13:22 | disposition home or self-care (01) ==
LOC: ED 11:10
DX: S93.492A Sprain of other ligament of left ankle, initial encounter (principal); X50.1XXA Overexertion from prolonged static or awkward postures, initial encounter
CPT/HCPCS: 99283

== ENCOUNTER 2023-12-15 18:16 | Emergency (ER) | payer MEDICAID ==
[2023-12-15 19:01] LABS: RAPID STREP SCREEN POSITIVE (Negative)
--- NOTE | 2023-12-15 19:26 | ED Physician Documentation ---
History of Present Illness - Stated complaint Stated Complaint: EAR/THROAT PX - Chief complaint Chief Complaint: Heent - History obtained from History obtained from: Patient - History of Present Illness Timing: How many days ago (3) Pain level max: 8 Pain level now: 8 - Additonal information Additional information: 28-year-old female presents to the emergency department for sore throat for the past 3 days. She states that this has gradually worsened. She states that she had strep pharyngitis 8 times last year. This feels similar. Has had bodyaches and chills. No cough. No congestion. Worse with swallowing and eating. Nothing makes it better. 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 : None HEENT: None Psych: Depression, Anxiety, Panic attacks Musculoskeletal: None Derm: None - Past Surgical History Past Surgical History: No - Present Medications Home Medications: Ambulatory Orders Medication Instructions Recorded Confirmed Amoxicillin 500 mg PO TID #30 cap 12/15/23 - Allergies Allergies/Adverse Reactions: Allergies Allergy/AdvReac Type Severity Reaction Status Date / Time peanut Allergy Unknown Verified 02/06/23 13:48 - Social History Does the pt smoke?: No Smoking Status: Never smoker Does the pt drink ETOH?: No Does the pt have substance abuse?: No - Immunizations Immunizations are current?: No Immunizations: Other immun not current - POLST Patient has POLST: No PD ED PE NORMAL - Vitals Vital signs reviewed: Yes - General General: Alert and oriented X 3, No acute distress - HEENT HEENT: Ears normal, Moist mucous membranes, Other (Posterior oropharynx is erythematous with tonsillar exudates. Normal phonation. No trismus. Uvula midline.) - Neck Neck: Supple, no meningeal sign, Other (Shotty anterior lymphadenopathy) - Cardiac Cardiac: RRR, No murmur, Strong equal pulses - Respiratory Respiratory: No respiratory distress, Clear bilaterally - Abdomen Abdomen: Soft, Non tender, Non distended - Derm Derm: Warm and dry, No rash - Neuro Neuro: Alert and oriented X 3 - Psych Psych: Normal mood, Normal affect Results - Vitals Vitals: Vital Signs - 24 hr 12/15/23 12/15/23 18:36 19:45 Temperature 36.8 C Heart Rate 114 H 101 H Respiratory 18 16 Rate Blood Pressure 131/90 H 147/86 H O2 Saturation 100 95 Oxygen O2 Source Room air - Labs Labs: Laboratory Tests 12/15/23 18:48 Group A Strep Rapid POSITIVE H PD Medical Decision Making - ED course Complexity details: reviewed results, considered differential, d/w patient ED course: Patient with strep pharyngitis. Rapid strep is positive. No evidence of peritonsillar or retropharyngeal abscess. Will place on antibiotics for home. As she has had recurrent strep so many times, question colonization versus need for further evaluation, may benefit from an ENT referral. Patient counseled regarding signs and symptoms for which I believe and urgent re-evaluation would be necessary. Patient with good understanding of and agreement to plan and is comfortable going home at this time This document was made in part using voice recognition software. While efforts are made to proofread this document, sound alike and grammatical errors may occur. Departure - Departure Disposition: 01 Home, Self Care Clinical Impression: Strep pharyngitis Condition: Good Instructions: ED Strep Pharyngitis Conf Follow-Up: [facility] [place] [Provider Group] Prescriptions: Amoxicillin 500 mg PO TID #30 cap Comments: Please follow-up with your doctor for further care. Take all antibiotics until gone. Your prescription was sent to [facility] in [place]. As we discussed given the number of times that you have had strep pharyngitis in the past year, you may benefit from an ENT referral. Please discuss this with your doctor. Forms: PCP List Discharge Date/Time: 12/15/23 19:46
[2023-12-15] MEDS: AMOX/CLAV 875 MG/125 MG TABLET PO STA (19:43)
[2023-12-15 19:48] VITALS: BP 147/86; O2SAT 95
== END 2023-12-15 19:46 | disposition home or self-care (01) ==
LOC: ED 18:16
DX: J02.0 Streptococcal pharyngitis (principal)
CPT/HCPCS: 87430; 99283; A9270

== ENCOUNTER 2024-02-03 08:00 | Outpatient (CLI) | payer MEDICAID ==
[2024-02-03 17:38] LABS: BILIRUBIN,URINE NEGATIVE (NEGATIVE); GLUCOSE, URINE (UA) NEGATIVE (NEGATIVE); KETONES,URINE (UA) NEGATIVE (NEGATIVE); LEUKOCYTE ESTERASE, URINE NEGATIVE (NEGATIVE); NITRITE,URINE NEGATIVE (NEGATIVE); OCCULT BLOOD,URINE NEGATIVE (NEGATIVE); PROTEIN,URINE NEGATIVE (NEGATIVE); UROBILINOGEN,URINE 0.2 (NORMAL) E.U./dL (NORMAL)
[2024-02-03 18:02] LABS: BACTERIA,URINE Few /HPF (None Seen); CLARITY,URINE CLEAR (CLEAR); RBC,URINE None Seen /HPF (0-5); SQUAMOUS EPITHELIAL CELL,UR MANY Squamous (<= Few); WBC,URINE 0-3 /HPF (0-5)
== END 2024-02-03 23:59 | disposition home or self-care (01) ==
LOC: LAB.WC 08:00
PROVIDERS: ATTEND Obstetrics & Gynecology
DX: Z34.90 Encounter for supervision of normal pregnancy, unspecified, unspecified trimester (principal)
CPT/HCPCS: 81001; 87086

== ENCOUNTER 2024-02-18 08:00 | Outpatient (CLI) | payer MEDICAID ==
[2024-02-18 22:51] LABS: CHLAMYDIA TRACHOMATIS DNA NEGATIVE (NEGATIVE); NEISSERIA GONORRHOEAE DNA NEGATIVE (NEGATIVE); TRICHOMONAS VAGINALIS DNA NEGATIVE (NEGATIVE)
== END 2024-02-18 23:59 | disposition home or self-care (01) ==
LOC: LAB.WC 08:00
PROVIDERS: ATTEND Obstetrics & Gynecology
DX: Z11.3 Encounter for screening for infections with a predominantly sexual mode of transmission (principal)
CPT/HCPCS: 87491; 87591; 87661

== ENCOUNTER 2024-02-19 19:09 | Outpatient (CLI) | payer MEDICAID ==
--- NOTE | 2024-02-19 21:40 | Ultrasound Report ---
PROCEDURE: OB 1st Trimester INDICATIONS: POSITIVE TEST OUTSIDE/PRIOR DATING DATA: Last menstrual period (LMP): 11/23/2023. LMP-based estimated date of delivery (MARLEN): 08/29/2024. First dating scan (date and location): 02/19/2024. Estimated date of delivery (MARLEN) from first dating scan: 08/31/2024. TECHNIQUE: Real-time scanning was performed of the fetus and maternal pelvic organs, with image documentation. COMPARISON: None. FINDINGS: Intrauterine gestational sac present. Embryo: [place]-rump length measures 5.7 cm, consistent with 12 weeks and 2 days. Heart rate: 169 bpm. Other: Subchorionic hemorrhage measuring 2.2 x 1.4 x 2.0 cm. Measurement variability in dating: +/- 4 weeks by LMP, +/- 7 days by mean sac diameter (use before 6 weeks gestation if crown-rump length not able to be measured), +/- 5 days by crown-rump length (6-12 weeks gestation). Maternal organs: Ovaries appear within normal limits. Right ovarian simple cyst measuring 2.8 cm. IMPRESSION: 1.Single live intrauterine consistent with 12 weeks and 2 days. 2.Subchorionic hemorrhage measuring 2.2 x 1.4 x 2.0 cm. Reviewed by: Blaise Jackson MD on 02/19/2024 9:39 PM PDT Approved by: Blaise Jackson MD on 02/19/2024 9:39 PM PDT Station ID: [id number]
== END 2024-02-19 19:10 | disposition home or self-care (01) ==
LOC: DI 19:09
PROVIDERS: ATTEND Obstetrics & Gynecology
DX: O20.8 Other hemorrhage in early pregnancy (principal); Z3A.12 12 weeks gestation of pregnancy

== ENCOUNTER 2024-02-24 11:32 | Outpatient (CLI) | payer MEDICAID ==
[2024-02-24 12:38] LABS: ALBUMIN 3.7 g/dL (3.2-5.5); BILIRUBIN,TOTAL 0.3 mg/dL (0.2-1.0); CALCIUM 9.7 mg/dL (8.5-10.3); CREATININE 0.4 mg/dL (0.6-1.3); POTASSIUM 4.1 mmol/L (3.5-4.5); TOTAL PROTEIN 7.3 g/dL (6.4-8.9)
[2024-02-24 20:51] LABS: CHLAMYDIA TRACHOMATIS DNA NEGATIVE (NEGATIVE); NEISSERIA GONORRHOEAE DNA NEGATIVE (NEGATIVE); TRICHOMONAS VAGINALIS DNA NEGATIVE (NEGATIVE)
== END 2024-02-24 11:33 | disposition home or self-care (01) ==
LOC: LAB 11:32
PROVIDERS: ATTEND Obstetrics & Gynecology
DX: O16.9 Unspecified maternal hypertension, unspecified trimester (principal); Z11.3 Encounter for screening for infections with a predominantly sexual mode of transmission
CPT/HCPCS: 36415; 80053; 87491; 87591; 87661

== ENCOUNTER 2024-03-03 14:12 | Outpatient (CLI) | payer MEDICAID ==
[2024-03-03 18:01] LABS: BASOPHILS % (AUTO) 0.4 %; EOSINOPHILS # (AUTO) 0.2 10^3/uL (0.0-0.7); EOSINOPHILS % (AUTO) 2.4 %; HCT - HEMATOCRIT 38.1 % (37.0-47.0); HGB - HEMOGLOBIN 12.5 g/dL (12.0-16.0); LYMPHOCYTES # (AUTO) 2.8 10^3/uL (1.5-3.5); LYMPHOCYTES % (AUTO) 31.1 %; MEAN CORPUSCULAR HEMOGLOBIN 27.7 pg (27.0-31.0); MEAN CORPUSCULAR HGB CONC 32.8 g/dL (32.0-36.0); MEAN CORPUSCULAR VOLUME 84.5 fL (81.0-99.0); MEAN PLATELET VOLUME 9.9 fL (7.9-10.8); MONOCYTES # (AUTO) 0.5 10^3/uL (0.0-1.0); MONOCYTES % (AUTO) 5.6 %; NEUTROPHILS # (AUTO) 5.5 10^3/uL (1.5-6.6); NEUTROPHILS % (AUTO) 60.2 %; PLT - PLATELET COUNT 358 10^3/uL (130-450); RED BLOOD COUNT 4.51 10^6/uL (4.20-5.40); RED CELL DISTRIBUTION WIDTH 14.3 % (12.0-15.0); WHITE BLOOD COUNT 9.1 x10^3/uL (4.8-10.8)
[2024-03-03 18:30] LABS: CREATININE,URINE 83.3 mg/dL; PROTEIN/CREATININE RATIO,URINE 0.1 (<=0.2)
[2024-03-03 22:08] LABS: ESTIMATED AVERAGE GLUCOSE 88 mg/dL (70-100); HEMOGLOBIN A1c% 4.7 % (4.27-6.07)
== END 2024-03-03 14:13 | disposition home or self-care (01) ==
LOC: LAB.N 14:12
PROVIDERS: ATTEND Obstetrics & Gynecology
DX: Z34.90 Encounter for supervision of normal pregnancy, unspecified, unspecified trimester (principal)
CPT/HCPCS: 36415; 82570; 83036; 84156; 85025; 86592; 86762; 86787; 86803; 86850; 86900; 86901; 87340; 87389

== ENCOUNTER 2024-03-07 16:41 | Outpatient (CLI) | payer MEDICAID | END 2024-03-07 16:42 | disposition home or self-care (01) | LOC: LAB 16:41 | PROVIDERS: ATTEND Obstetrics & Gynecology | DX: Z36.89 Encounter for other specified antenatal screening (principal) ==

== ENCOUNTER 2024-04-01 06:46 | Emergency (ER) | payer MEDICAID ==
--- NOTE | 2024-04-01 07:11 | ED Physician Documentation ---
PD HPI NVD - Stated complaint Stated Complaint: N/V/D - Chief complaint Chief Complaint: Abd Pain - History obtained from History obtained from: Patient - History of Present Illness Timing - onset: Last night Timing - details: Abrupt onset, Still present Associated symptoms: Dizzy (lightheaded and weak this morning.), Loss of appetite. No: Fever Contributing factors: Sick contact (her partner with similar symptoms onset last night as well, but had a different pizza (each individiual ones).), Bad food (onset an hour after MOD pizza, but had some nausea eaerlier in the day.) Review of Systems Constitutional: denies: Fever, Chills GI: reports: Nausea, Vomiting, Diarrhea : reports: Now EGA (18 weeks). 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 : None HEENT: None Psych: Depression, Anxiety, Panic attacks Musculoskeletal: None Derm: None - Past Surgical History Past Surgical History: No - Present Medications Home Medications: Ambulatory Orders Medication Instructions Recorded Confirmed Labetalol [Trandate] 100 mg PO BID 04/01/24 04/01/24 Magnesium Oxide [Mag Ox] 400 mg PO DAILY #20 tablet 04/01/24 Ondansetron Odt [Zofran] 4 mg TL Q6H PRN #15 tablet 04/01/24 Promethazine Supp [Phenergan Supp] 25 mg IN Q6H PRN #5 supp 04/01/24 Pyridoxine HCl (Vitamin B6) 25 mg PO BID #40 tablet 04/01/24 [Vitamin B-6] - Allergies Allergies/Adverse Reactions: Allergies Allergy/AdvReac Type Severity Reaction Status Date / Time peanut Allergy Unknown Verified 04/01/24 06:53 - Social History Does the pt smoke?: No Smoking Status: Never smoker Does the pt drink ETOH?: No Does the pt have substance abuse?: No - Immunizations Immunizations are current?: Yes Immunizations: TDAP current <10years, Other immun not current - POLST Patient has POLST: No PD ED PE NORMAL - Vitals Vital signs reviewed: Yes - General General: Alert and oriented X 3, Well developed/nourished - HEENT HEENT: No: Moist mucous membranes - Cardiac Cardiac: RRR, No murmur - Respiratory Respiratory: No respiratory distress, Clear bilaterally - Abdomen Abdomen: Normal bowel sounds, Non tender, Other (fundus felt just below the umbilicus c/w dates. ) - Derm Derm: Normal color, Warm and dry Results - Vitals Vitals: Vital Signs - 24 hr 04/01/24 04/01/24 06:53 09:41 Temperature 36.6 C 36.6 C Heart Rate 92 78 Respiratory 16 18 Rate Blood Pressure 121/60 136/81 H O2 Saturation 97 100 Oxygen O2 Source Room air - Labs Labs: Laboratory Tests 04/01/24 07:38 Sodium 133 L Potassium 3.9 Chloride 104 Carbon Dioxide 22 Anion Gap 7.0 BUN 7 Creatinine 0.4 L Estimated GFR (MDRD) 190 Glucose 107 H Calcium 8.6 Magnesium 1.2 L Total Bilirubin 0.5 AST 11 ALT 9 L Alkaline Phosphatase 76 Total Protein 7.0 Albumin 3.5 Globulin 3.5 Albumin/Globulin Ratio 1.0 Lipase 28 PD Medical Decision Making - ED course Complexity details: reviewed results (Some electrolytes are off with low magnesium.), considered differential (Onset of nausea vomiting with some diarrhea about an hour after eating pizza from a restaurant. Her significant other with same symptoms with same timing though they both had some mild abdominal cramping earlier in the day.) Reviewed Lab Results: The patient had some mild abdominal cramping yesterday during the day with mild nausea but did not feel ill in general. Similar with her partner. They both had onset of repetitive vomiting along with diarrhea about an hour after eating a pizza from a restaurant. The patient attributes her symptoms to the pizza though there consideration would be for coincidence of that and a developing viral gastroenteritis. No upper respiratory symptoms. The patient is feeling generally lightheaded and weak and still nauseous. She i s without any noted cramping spotting or bleeding. Given her feeling of lightheadedness and general weakness and still ongoing nausea and recent vomiting, shared discussion was for IV with fluids and antiemetics and medication for cramps. She is reportedly 18 weeks . At this point I feel a single dose of ketorolac is okay along with a dancer Matthew for nausea. Subsequently the the patient was reevaluated and she is feeling much improved with fluids and medication. She states she has not had some level of nausea with and had been not taking any medicines regularly. I offered vitamin D the be 6 as a ACOG recommendation for related nausea. She is in agreement. I also prescribed ondansetron if needed for nausea. Her magnesium level is 1 magnesium level is moderate level 1.2 and she was given a 2 g infusion along with a second liter of fluid and felt even better still. Departure - Departure Disposition: 01 Home, Self Care Clinical Impression: Nausea vomiting and diarrhea, Volume depletion, Hypomagnesemia, Gastroenteritis Qualifiers: Weeks of gestation: 18 weeks Qualified Code(s): Z3A.18 - 18 weeks gestation of Condition: Stable Record reviewed to determine appropriate education?: Yes Instructions: ED Food Poison Or Gastroenteritis Follow-Up: Akash Jennings MD [Provider Admit Priv/Credential] - Prescriptions: Magnesium Oxide [Mag Ox] 400 mg PO DAILY #20 tablet Promethazine Supp [Phenergan Supp] 25 mg IN Q6H PRN #5 supp PRN Reason: Nausea / Vomiting Pyridoxine HCl (Vitamin B6) [Vitamin B-6] 25 mg PO BID #40 tablet Ondansetron Odt [Zofran] 4 mg TL Q6H PRN #15 tablet PRN Reason: Nausea / Vomiting Comments: Resume your symptoms relate to either a food related toxin or potentially a viral "stomach flu". Either these can irritate the stomach and intestines leading to nausea vomiting and diarrhea. Hopefully will be more short term with day or 2 of symptoms. Some of the viral illnesses can last even 3 to 5 days. I prescribed some a dancer Matthew if needed for nausea which is a dissolving tablet. If you are not getting improvement with those I did prescribe a few suppositories for nausea as well. In general for the baseline nausea with , you can add vitamin B6 twice daily for the next few weeks as well. Your magnesium level is low likely from losses from the vomiting and diarrhea. Your other electrolytes were looking okay. I would suggest magnesium supplement for the next week or 2 in addition to your normal vitamins etc. vitamins can be nauseating at times, particularly the iron component. As such I would suggest holding your vitamin for 2 to 3 days into your stomach slow more settled. Small frequent fluids and bland food today. Increase as tolerated. I sent your prescriptions to your preferred pharmacy. Return if worsened symptoms again despite the medicines. Follow-up with [facility]. Forms: PCP List Discharge Date/Time: 04/01/24 09:42
[2024-04-01] MEDS: ONDANSETRON 4 MG/2 ML VIAL IVP STA (07:34)
[2024-04-01] MEDS: KETOROLAC 15 MG/ML VIAL IVP STA (07:34)
[2024-04-01] MEDS: SODIUM CHLORIDE 0.9% 1,000 ML IV STA (07:35)
[2024-04-01 07:59] LABS: ALBUMIN 3.5 g/dL (3.2-5.5); BILIRUBIN,TOTAL 0.5 mg/dL (0.2-1.0); CALCIUM 8.6 mg/dL (8.5-10.3); CREATININE 0.4 mg/dL (0.6-1.3); MAGNESIUM 1.2 mg/dL (1.7-2.3); POTASSIUM 3.9 mmol/L (3.5-4.5)
[2024-04-01] MEDS: MAGNESIUM SULFATE 2 GRAM 2 GM/50 ML BAG IV ONE (08:31)
[2024-04-01] MEDS: LACTATED RINGERS 1,000 ML IV STA (08:32)
[2024-04-01 09:44] VITALS: BP 136/81; O2SAT 100
== END 2024-04-01 09:42 | disposition home or self-care (01) ==
LOC: ED 06:46
DX: O99.612 Diseases of the digestive system complicating pregnancy, second trimester (principal); K52.9 Noninfective gastroenteritis and colitis, unspecified; O99.282 Endocrine, nutritional and metabolic diseases complicating pregnancy, second trimester; E83.42 Hypomagnesemia; Z3A.18 18 weeks gestation of pregnancy
CPT/HCPCS: 36415; 80053; 83690; 83735; 96361; 96365; 96375; 99283; 99284; J7120

== ENCOUNTER 2024-04-27 18:30 | Outpatient (CLI) | payer MEDICAID ==
--- NOTE | 2024-04-28 14:42 | Ultrasound Report ---
PROCEDURE: OB Anatomy Scan INDICATIONS: SUPERVISION OF NORMAL OUTSIDE/PRIOR DATING DATA: Last menstrual period (LMP): 11/23/2023. LMP-based estimated date of delivery (MARLEN): 08/29/2024. First dating scan (date and location): 02/19/2024. Estimated date of delivery (MARLEN) from first dating scan: 08/31/2024. The below data below was generated using the clinical MARLEN of 08/29/2024 TECHNIQUE: Real-time scanning was performed of the fetus, with image documentation and biometric measurements. Endovaginal scanning: Not performed. COMPARISON: OB ultrasound 02/19/2024 FINDINGS: General: A single living intrauterine gestation is present. Presentation: Vertex Placenta: Placental position is posterior, without previa. Amniotic fluid index: 15.8 cm, within normal limits for gestational age. heart rate: 158 beats per minute. Maternal cervical canal: 4.9 cm long; normal length is 2.5 cm or more. biometrics: Biparietal diameter: 5.1 cm, 21 weeks 3 days, 17th percentile Head circumference: 19.3 cm, 21 weeks 4 days, 13th percentile Abdominal circumference: 16.8 cm, 21 weeks 5 days, 26th percentile Femur length: 3.77 mm, 21 weeks 4 days, 19th percentile Estimated gestational age from initial scan: 22 weeks 2 days Composite gestational age from present scan: 21 weeks 4 days Estimated weight and percentile: 442 g, 17th percentile Measurement variability in biometric dating: +/- 10 days from 12-20 weeks gestation, +/- 2 weeks from 20-30 weeks gestation, +/- 3 weeks at 30 weeks gestation or later. Anatomic survey: Neuro: Ventricles are normal at less than 10 mm. Cisterna magna is normal at 3-11 mm. Cerebellum i s normal in size and morphology. Nuchal skin fold: Normal at less than 6 mm between 14 and 20 weeks gestational age. Face: Nose and lips, facial profile are normal. Spine: No evidence for spina bifida. Heart: 4-chambered heart is present, with normal left ventricular outflow tract. Right ventricular outflow tract not well visualized. Diaphragm: Diaphragm is intact. Stomach: Left-sided stomach is present. Kidneys: No hydronephrosis. Normal is less than 5 mm in 2nd trimester, less than 7 mm in 3rd trimester. Cord: 3 vessel cord has orthotopic insertion. Bladder: Normal in size. Extremities: Left upper extremity is not well visualized due to positioning. The remaining ext remities are visualized abdomen appears normal. IMPRESSION: 1.Single live intrauterine . Estimated weight is at the 17th percentile for clinical g estational age. 2. spine, right ventricular outflow tract, and left upper extremity are not well visualized due to positioning. Recommend follow-up exam. 3. anatomic survey is otherwise within normal limits. Reviewed by: Edmond Kern MD on 04/28/2024 2:40 PM PDT Approved by: Edmond Kern MD on 04/28/2024 2:40 PM PDT Station ID: [id number]
== END 2024-04-27 18:31 | disposition home or self-care (01) ==
LOC: DI 18:30
PROVIDERS: ATTEND Obstetrics & Gynecology
DX: Z34.92 Encounter for supervision of normal pregnancy, unspecified, second trimester (principal)

== ENCOUNTER 2024-08-21 07:50 | Inpatient (IN) ==
[2024-08-21] MEDS ORDERED: NIFEdipine 10 MG CAPSULE PO PRN (08:27)
[2024-08-21] MEDS ORDERED: miSOPROStoL 200 MCG TABLET PR PRN (08:27)
[2024-08-21] MEDS ORDERED: ONDANSETRON 4 MG/2 ML VIAL IVP PRN ×3 (08:27→22:18)
[2024-08-21] MEDS ORDERED: OXYTOCIN/SODIUM CHLORIDE 500 ML IV PRN (08:27)
[2024-08-21] MEDS ORDERED: fentaNYL 100 MCG/2 ML VIAL IVP PRN (08:27)
[2024-08-21] MEDS ORDERED: miSOPROStoL 200 MCG TABLET BC PRN (08:27)
[2024-08-21] MEDS ORDERED: TERBUTALINE 1 MG/ML VIAL SUBQ PRN (08:27)
[2024-08-21] MEDS ORDERED: METHYLERGONOVINE 0.2 MG/ML VIAL IM PRN (08:27)
[2024-08-21] MEDS ORDERED: OXYTOCIN 10 UNIT/ML VIAL IM PRN (08:27)
[2024-08-21] MEDS ORDERED: hydrALAZINE INJ 20 MG/ML VIAL IVP PRN (08:27)
[2024-08-21] MEDS ORDERED: SODIUM CHLORIDE FLUSH 0.9% 10 ML SYRINGE IVP PRN (08:27)
[2024-08-21] MEDS ORDERED: lidocaine 1% 20 ML MDV ID PRN (08:27)
[2024-08-21] MEDS ORDERED: LABETALOL 20 MG/4 ML SYRINGE IVP PRN ×3 (08:27)
[2024-08-21] MEDS ORDERED: TRANEXAMIC ACID IN NACL 1,000 MG/100 ML BAG IV PRN (08:27)
[2024-08-21] MEDS ORDERED: CALCIUM CARBONATE CHEW 500 MG TABLET PO PRN ×2 (08:27→22:18)
[2024-08-21 08:41] LABS: BASOPHILS % (AUTO) 0.3 %; EOSINOPHILS # (AUTO) 0.1 10^3/uL (0.0-0.7); EOSINOPHILS % (AUTO) 1.4 %; HCT - HEMATOCRIT 33.5 % (37.0-47.0); LYMPHOCYTES # (AUTO) 2.4 10^3/uL (1.5-3.5); LYMPHOCYTES % (AUTO) 24.7 %; MEAN CORPUSCULAR HEMOGLOBIN 28.7 pg (27.0-31.0); MEAN CORPUSCULAR HGB CONC 32.8 g/dL (32.0-36.0); MEAN CORPUSCULAR VOLUME 87.5 fL (81.0-99.0); MEAN PLATELET VOLUME 9.8 fL (7.9-10.8); MONOCYTES # (AUTO) 0.4 10^3/uL (0.0-1.0); MONOCYTES % (AUTO) 3.5 %; NEUTROPHILS # (AUTO) 6.9 10^3/uL (1.5-6.6); NEUTROPHILS % (AUTO) 69.8 %; PLT - PLATELET COUNT 323 10^3/uL (130-450); RED BLOOD COUNT 3.83 10^6/uL (4.20-5.40); RED CELL DISTRIBUTION WIDTH 13.7 % (12.0-15.0); WHITE BLOOD COUNT 9.9 x10^3/uL (4.8-10.8)
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
[2024-08-21 09:13] LABS: ALBUMIN 3.4 g/dL (3.2-5.5); BILIRUBIN,TOTAL 0.3 mg/dL (0.2-1.0); CALCIUM 9.1 mg/dL (8.5-10.3); CREATININE 0.6 mg/dL (0.6-1.3); POTASSIUM 3.9 mmol/L (3.5-4.5); TOTAL PROTEIN 6.9 g/dL (6.4-8.9)
[2024-08-21] MEDS: LABETALOL 100 MG TABLET PO SCH (09:54)
[2024-08-21] MEDS: SODIUM CHLORIDE FLUSH 0.9% 10 ML SYRINGE IVP SCH (09:56)
[2024-08-21] MEDS: OXYTOCIN/SODIUM CHLORIDE 500 ML IV SCH (10:14)
[2024-08-21] MEDS: SODIUM CHLORIDE 0.9% 1,000 ML IV SCH (10:22)
--- NOTE | 2024-08-21 15:38 | PHARMACY PROGRESS NOTE ---
Best Possible Medication History Admit Date and Time: 08/21/24 [id number] Home Medications Medication Instructions Recorded Confirmed Type labetalol 100 mg tablet 100 mg PO BID 04/01/24 08/21/24 History aspirin 81 mg tablet,delayed 81 mg PO QDAY prevent preeclampsia 06/08/24 08/21/24 Rx release (Enteric Coated Aspirin) #90 tabs ferrous sulfate 325 mg (65 mg 325 mg PO Q OTHER DAY 07/07/24 08/21/24 History iron) tablet calcium carbonate (Tums) 200 mg PO QDAY 07/20/24 08/21/24 History vitamins no.119-iron 1 tab PO DAILY 08/21/24 08/21/24 History fumarate 29 mg-folic acid 1 mg tablet ( 19) Processed by: Pharmacy [facility] Statement: As the person ultimately responsible for medication therapy, providers are able to order a medication from an existing home medication list in [facility] via the "Reconcile Routine" prior to Confirmation of that medication by student support counselor. Such practice is discouraged except when the physician, in their clinical judgment, deems that a medical need exists for a medication without regard to previous use.
--- NOTE | 2024-08-21 16:03 | ANESTHESIA PROCEDURE NOTE ---
Pre-Anesthesia VS, & Labs Diagnosis Surgical Diagnosis:: labor pain Procedure Procedure: labor epidural Vitals Vital Signs: Temp Pulse Resp BP 37.0 C 90 14 138/78 H 08/21/24 08:11 08/21/24 08:11 08/21/24 08:11 08/21/24 08:11 NPO NPO: Other Is Patient ?: Yes Lab Results Current Lab Results: Laboratory Tests 08/21/24 08:52: Sodium 134 L, Potassium 3.9, Chloride 106, Carbon Dioxide 19 L, Anion Gap 9.0, BUN 8, Creatinine 0.6, Estimated GFR (MDRD) 118, Glucose 83, Calcium 9.1, Total Bilirubin 0.3, AST 14, ALT 10, Alkaline Phosphatase 145 H, Total Protein 6.9, Albumin 3.4, Globulin 3.5, Albumin/Globulin Ratio 1.0, Blood Type A POSITIVE, Antibody Screen NEGATIVE 08/21/24 08:20: WBC 9.9, RBC 3.83 L, Hgb 11.0 L, Hct 33.5 L, MCV 87.5, MCH 28.7, MCHC 32.8, RDW 13.7, Plt Count 323, MPV 9.8, Neut # (Auto) 6.9 H, Lymph # (Auto) 2.4, [place] # (Auto) 0.4, Eos # (Auto) 0.1, Baso # (Auto) 0.0, Absolute Nucleated RBC 0.00, Nucleated RBC % 0.0 08/21/24 08:20 08/21/24 08:52 Meds/Allgy Home Medications Ambulatory Orders Medication Instructions Recorded Confirmed labetalol 100 mg tablet 100 mg PO BID 04/01/24 08/21/24 aspirin 81 mg tablet,delayed 81 mg PO QDAY prevent preeclampsia 06/08/24 08/21/24 release (Enteric Coated Aspirin) #90 tabs ferrous sulfate 325 mg (65 mg 325 mg PO Q OTHER DAY 07/07/24 08/21/24 iron) tablet calcium carbonate (Tums) 200 mg PO QDAY 07/20/24 08/21/24 vitamins no.119-iron 1 tab PO DAILY 08/21/24 08/21/24 fumarate 29 mg-folic acid 1 mg tablet ( 19) Allergies Allergies Allergy/AdvReac Type Severity Reaction Status Date / Time peanut Allergy Severe Anaphylaxis Verified 07/27/24 11:04 pollen extracts Allergy Intermediate Respiratory Verified 07/27/24 11:04 guinea pigs Allergy Intermediate Hives Uncoded 07/27/24 11:04 [facility] Medical History Medical History (Updated 07/07/24 @ 09:36 by Akash Jennings MD) Elevated blood pressure affecting in second trimester, antepartum (01/02/23) Gestational hypertension on labetalol Encounter for supervision of normal first , unspecified trimester Spontaneous vaginal delivery Hx of preeclampsia, prior , currently (07/12/22) Essential hypertension (02/26/23) Family History Family History (Updated 05/12/24 @ 10:00 by Sabrina Simpson LPN) Mother Abnormal uterine bleeding Father High blood pressure Diabetes Hyperlipidemia Acute exacerbation of emphysema Aunt Colon cancer Grandfather Cancer Grandmother CAD (coronary artery disease) Social History Social History Smoking Status: Former smoker If you are a former smoker, when did you quit? (Date/Year): 2022 Number of Years Smoked: 11 How many cigarettes a day do you smoke? (20 cigarettes=1 Pk): 7 Do you dip or chew tobacco?: No Patient requests smoking cessation consult: No Initiate information on smoking cessation: No Living arrangement: At home Living Condition: With friend(s) Relationship: Spouse Do you feel safe in your home environment?: Yes Suffered physical, verbal, emotional, or financial abuse?: No History of Abuse: No ETOH Use: POLST Patient has POLST: No POLST Status: Full Code Anesthesia Exam (Expanded) Exam General: Alert, Oriented x3 and Cooperative Dental: WNL Mouth Openin Fingerbreadth Mallampati classification: III Thyromental Distance: 4-6 cm Respiratory: Lungs clear Cardiovascular: Regular rate Plan Plan Anesthesia Type: Epidural Consent for Procedure(s) Verified and Reviewed: Yes Code Status: Attempt Resuscitation ASA Classification ASA classification: 3-Severe systemic disease Is this case an emergency?: No
[2024-08-21] MEDS: ACETAMINOPHEN 500 MG TABLET PO PRN (16:06)
[2024-08-21] MEDS ORDERED: NALOXONE 0.4 MG/ML VIAL IVP PRN (17:35)
[2024-08-21] MEDS ORDERED: METOCLOPRAMIDE 10 MG/2 ML VIAL IVP PRN (17:35)
[2024-08-21] MEDS ORDERED: diphenhydrAMINE INJ 50 MG/ML VIAL IVP PRN (17:35)
[2024-08-21] MEDS ORDERED: NALBUPHINE 10 MG/ML AMP IVP PRN (17:35)
[2024-08-21] MEDS ORDERED: LACTATED RINGERS 500 ML IV ONE (17:35)
[2024-08-21] MEDS ORDERED: ePHEDrine 50 MG/ML VIAL IVP PRN (17:35)
[2024-08-21] MEDS ORDERED: LIDOCAINE 2%-EPI 1:100000 20 ML MDV ONE (17:45)
[2024-08-21] MEDS ORDERED: ROPIVACAINE 0.2% 200 MG/100 ML BAG EP ONE (17:45)
[2024-08-21] MEDS ORDERED: SODIUM CHLORIDE 0.9% 10 ML VIAL IVP ONE (20:01)
[2024-08-21] MEDS ORDERED: LIDOCAINE-MPF 2% 5 ML VIAL ONE (20:01)
[2024-08-21] MEDS ORDERED: fentaNYL 100 MCG/2 ML VIAL ONE (20:01)
[2024-08-21] MEDS: ROPIVACAINE 0.2% 200 MG/100 ML BAG EP PRN (21:40)
[2024-08-21] MEDS ORDERED: SIMETHICONE CHEW 80 MG TABLET PO PRN (22:18)
[2024-08-21] MEDS ORDERED: WITCH HAZEL/GLYCERIN 1 PAD TOP PRN (22:18)
--- NOTE | 2024-08-21 22:18 | DELIVERY NOTE ---
Delivery Note Labor Labor: positive Augmented by ARM and Induced by oxytocin Infant Delivery Method Delivery Method: positive Spontaneous vaginal delivery Presentation Presentation: positive Vertex Nuchal Cord Nuchal Cord: positive None Laceration Laceration: positive Labial (right) [place]: positive Placed in direct skin contact with mother Cord Cord: positive 3 vessels Placenta Placenta: positive Intact Estimated Blood Loss Estimated Blood Loss (in cc): 200 Post Delivery Events Post Delivery Events: positive No post delivery events Delivery Comments (Free Text/Narrative) Delivery Comments (Free Text/Narrative): Preoperative Diagnoses Chronic hypertension 38 weeks gestation Induction of labor Postoperative Diagnoses Same Status post spontaneous vaginal delivery Delivery of live mercado Summary Patient was admitted at 38 weeks 6 days gestation for induction of labor secondary to chronic hypertension managed with antihyperglycemics. Previous was complicated by gestational hypertension. Upon admission, she had a favorable cervix and oxytocin was started. Upon the head engagement, amniotomy was performed with a moderate amount of clear fluid. She continued on oxytocin and received an epidural for pain control. As she progressed to the second stage, she began having more frequent variable decelerations, was checked and found to be complete and ready to push. Delivery Summary: Patient was placed in the dorsal lithotomy position. Upon maternal pushing the head was delivered atraumatically followed by the anterior shoulder, posterior shoulder, then the remainder of the infant's body. A female was delivered with APGARS of 8 at 1 minute and 9 at 5 minutes. The was placed on its mother's chest . After the cord finished pulsating, the umbilical cord was clamped times two and cut. The placenta delivered intact with three vessel cord. Placenta was not sent to pathology. Thirty units of Pitocin were added to the IV fluid and allowed to run freely. Uterine massage was performed until uterus was deemed firm. Upon inspection the perineum, a small right labial laceration was noted, but was hemostatic with pressure. Uterus again massaged and found to be firm. Needle and sponge counts were correct. Patient was stable and allowed to recover in L&D room. was stable and remained in room with mother. weight is pending at this time.
[2024-08-21] MEDS ORDERED: LACTATED RINGERS 1,000 ML IV SCH (23:00)
[2024-08-22] MEDS: IBUPROFEN 600 MG TABLET PO SCH (01:26)
[2024-08-22] MEDS ORDERED: ACETAMINOPHEN 500 MG TABLET PO SCH (06:00)
[2024-08-22] MEDS: ACETAMINOPHEN 500 MG TABLET PO SCH (06:14)
--- NOTE | 2024-08-22 14:13 | PROVIDER PROGRESS NOTE ---
Subjective Subjective Subjective: Subjective Patient reports she is doing well. Lochia appropriate. Denies heavy bleeding. Ambulating. Pelvic and abdominal pain well-controlled. Tolerating oral intake. Diet: Regular. Voiding without difficulty. Passing flatus. Denies BM. Patient is bonding with baby in room Breast feeding going well. Denies feeling lightheaded, dizzy or excessively fatigued. Control: Partner vasectomy Objective General: Alert, oriented, no apparent distress. Cardiovascular: Regular rate. Regular rhythm. Lungs: No increased work of breathing. Abdomen: Uterus firm. Below umbilicus. No guarding or rebound. Current Medications Current Medications Current Medications: Current Medications Generic Name Dose Route Start Last Admin Trade Name Freq PRN Reason Stop Dose Admin Acetaminophen 1,000 mg 08/21/24 22:21 08/22/24 06:14 Acetaminophen 500 Mg Tablet PO 1,000 mg Q8HR ULISSES Administration Calcium Carbonate/Glycine 500 mg 08/21/24 22:18 Calcium Carbonate Chew 500 Mg Tablet PO TID PRN Heartburn Diphenhydramine HCl 12.5 - 25 mg 08/21/24 17:35 Diphenhydramine Inj 50 Mg/Ml Vial IVP Q6HR PRN ITCHING Ephedrine Sulfate 5 mg 08/21/24 17:35 Ephedrine 50 Mg/Ml Vial IVP Q5M PRN For SBP<100;give until SBP>100 Hydralazine HCl 5 - 10 mg 08/21/24 08:27 Hydralazine Inj 20 Mg/Ml Vial IVP Q20M PRN SBP> or= 160 OR DBP> or= 110 Protocol Ropivacaine 200 mg in 100 mls @ 0 mls/hr 08/21/24 17:35 08/21/24 22:15 Naropin 0.2% EP Infused PRN PRN Infusion PAIN Protocol Per Protocol Ibuprofen 600 mg 08/22/24 00:00 08/22/24 08:44 Ibuprofen 600 Mg Tablet PO 600 mg Q6HR ULISSES Administration Labetalol HCl 20 mg 08/21/24 08:27 Labetalol 20 Mg/4 Ml Syringe IVP .ONCE PRN SBP> or= 160 OR DBP> or= 110 Protocol Labetalol HCl 20 - 40 mg 08/21/24 08:27 Labetalol 20 Mg/4 Ml Syringe IVP Q10M PRN SBP> or= 160 OR DBP> or= 110 Protocol Labetalol HCl 20 - 80 mg 08/21/24 08:27 Labetalol 20 Mg/4 Ml Syringe IVP Q10M PRN SBP> or= 160 OR DBP> or= 110 Protocol Labetalol HCl 100 mg 08/21/24 10:00 08/22/24 08:44 Labetalol 100 Mg Tablet PO 100 mg BID ULISSES Administration Metoclopramide HCl 10 mg 08/21/24 17:35 Metoclopramide 10 Mg/2 Ml Vial IVP Q6HR PRN Nausea / Vomiting Nalbuphine HCl 2.5 - 5 mg 08/21/24 17:35 Nalbuphine 10 Mg/Ml Amp IVP Q4H PRN ITCHING Naloxone HCl 0.1 mg 08/21/24 17:35 Naloxone 0.4 Mg/Ml Vial IVP Q2M PRN RR<8 Nifedipine 10 - 20 mg 08/21/24 08:27 Nifedipine 10 Mg Capsule PO Q20M PRN SBP> or= 160 OR DBP> or= 110 Protocol Ondansetron HCl 4 mg 08/21/24 08:27 Ondansetron 4 Mg/2 Ml Vial IVP Q4HR PRN Nausea / Vomiting Ondansetron HCl 4 mg 08/21/24 17:35 Ondansetron 4 Mg/2 Ml Vial IVP Q6HR PRN Nausea / Vomiting Ondansetron HCl 4 mg 08/21/24 22:18 Ondansetron 4 Mg/2 Ml Vial IVP Q4HR PRN Nausea / Vomiting Simethicone 80 mg 08/21/24 22:18 Simethicone Chew 80 Mg Tablet PO TID PRN Gas Sodium Chloride 10 ml 08/21/24 08:27 Sodium Chloride Flush 0.9% 10 Ml Syringe IVP PRN PRN NEEDED PER PROVIDER ORDERS Sodium Chloride 10 ml 08/21/24 09:00 08/21/24 09:56 Sodium Chloride Flush 0.9% 10 Ml Syringe IVP 10 ml Q8H ULISSES Administration Witch Kerrie/Glycerin 1 pad 08/21/24 22:18 Witch Kerrie/Glycerin 1 Pad TOP PRN PRN ITCHING Objective Vital Signs/Intake & Output Vital Signs: Vital Signs x48h Temp Pulse Resp BP Pulse Ox 08/22/24 08:42 36.6 C 80 16 127/68 08/22/24 06:16 35.7 C L 77 14 121/78 97 Intake & Output: Intake & Output 08/19/24 08/20/24 08/21/24 08/22/24 23:59 23:59 23:59 23:59 Intake Total 1147 / 1147 1592 / 1592 Output Total 675 / 675 300 / 300 Balance 472 / 472 1292 / 1292 Weight (kg) 221 lb 3.2 oz Lab Results 08/21/24 08:20 08/21/24 08:52 Assessment/Plan Problem List (1) Spontaneous vaginal delivery: Impression: Routine care Anticipate discharge tomorrow. (2) Chronic hypertension: Impression: Continue home labetalol. (3) Obesity (BMI 35.0-39.9 without comorbidity): (4) Delivery outcome of liveborn : Qualifiers: Number of infants delivered: single infant Qualified Code(s): Z37.0 - Single live
[2024-08-23 08:24] VITALS: BP 125/75; TEMP 97.7; O2SAT 99
--- NOTE | 2024-08-23 09:45 | Discharge Summary ---
Discharge Summary Admit Date: 08/21/24 Discharge Date: 08/23/24 Discharging Provider: Akash Jennings MD Code Status: Attempt Resuscitation DIAGNOSES Admission Diagnoses: 38 weeks gestation Chronic hypertension Induction of labor Obesity Discharge Diagnoses with Status of Each Condition: Same Delivery of live mercado Status post spontaneous vaginal delivery HPI History of Present Illness: Subjective Patient reports she is doing well. Did have a fever once yesterday, but was not sustained. Lochia appropriate. Denies heavy bleeding. Ambulating. Pelvic and abdominal pain well-controlled. Tolerating oral intake. Diet: Regular. Voiding without difficulty. Passing flatus. Denies BM. Patient is bonding with baby in room Breast feeding going well. Denies feeling lightheaded, dizzy or excessively fatigued. Control: Partner vasectomy Objective General: Alert, oriented, no apparent distress. Cardiovascular: Regular rate. Regular rhythm. Lungs: No increased work of breathing. Abdomen: Uterus firm. Below umbilicus. No guarding or rebound. Extremities: No pain on palpation. No cords palpated. Distal pulses intact. HOSPITAL COURSE Hospital Course: Patient presented at 38 weeks gestation for induction of labor secondary to chronic hypertension. She had oxytocin followed by amniotomy. She received an epidural for pain control. Overall induction was unremarkable aside from a short period of category 2 tracing right before delivery. Delivery was uncomplicated. course was similarly unremarkable. She was discharged in good condition with on day 2. ALLERGIES Allergies Allergy/AdvReac Type Severity Reaction Status Date / Time peanut Allergy Severe Anaphylaxis Verified 07/27/24 11:04 pollen extracts Allergy Intermediate Respiratory Verified 07/27/24 11:04 guinea pigs Allergy Intermediate Hives Uncoded 07/27/24 11:04 MEDICATIONS Ambulatory Orders Medication Instructions Recorded Confirmed labetalol 100 mg tablet 100 mg PO BID 04/01/24 08/21/24 ferrous sulfate 325 mg (65 mg 325 mg PO Q OTHER DAY 07/07/24 08/21/24 iron) tablet calcium carbonate (Tums) 200 mg PO QDAY 07/20/24 08/21/24 vitamins no.119-iron 1 tab PO DAILY 08/21/24 08/21/24 fumarate 29 mg-folic acid 1 mg tablet ( 19) LABS 08/21/24 08:20 08/21/24 08:52 FOLLOW UP Follow Up: With Akash Jennings MD in 1 week. TIME SPENT Time Spent in Discharge (Minutes): 20 Discharge Plan Discharge Patient Disposition: 01 Home, Self Care Medically Cleared Date:: 08/23/24 Prescriptions: Continued labetalol 100 MG tablet 100 mg PO BID Patient Comments: TAKE 1 TABLET BY MOUTH TWICE DAILY 19 29 mg iron- 1 mg tablet 1 tab PO DAILY ferrous sulfate 325 mg (65 mg iron) tablet 325 mg PO Q OTHER DAY calcium carbonate [Tums] 200 mg calcium (500 mg) tablet,chewable 200 mg PO QDAY Discontinued aspirin [Enteric Coated Aspirin] 81 mg tablet,delayed release (DR/EC) 81 mg PO QDAY Qty: 90 4RF Activity Restrictions: Additional Comments Diet: Regular Print Language: Tajik Patient Instructions: Vaginal After, Depression
[2024-08-23] MEDS: VARICELLA VACCINE LIVE/PF 1,350 UNIT/0.5 ML VIAL SUBQ ONE (11:03)
--- NOTE | 2024-08-23 13:19 | Labor Flowsheet ---
Labor Flowsheet Datetime Report Generated by CPN: 08/23/2024 13:18 Datetime: 08/23/2024 08:10 Pulse: 73 SpO2 (%): 98 Datetime: 08/23/2024 08:09 VITAL SIGNS NBP Sys/Christie/Mean (mmHg): 125 : 75 : 87 Datetime: 08/22/2024 01:19 Temperature (C): 36.5 Datetime: 08/21/2024 22:08 Stage of : Recovery Datetime: 08/21/2024 22:03 UTERINE ACTIVITY Monitor Mode: External Monitor Interventions for UA: [place] Adjusted Frequency (min): 1-2 Quality: Strong Duration (sec): 40-50 Pattern: Normal: <= 5 Contractions in 10 Minutes Resting Tone (Palpate): Relaxed Pitocin Checklist: At Least 1 Acceleration of 15 bpm x 15 Seconds in 30 Minutes or Adequate Variabi lity; No More than 1 Late Deceleration Occurred in Past 30 Minutes; No More than 2 Variable Decelerat ions > 60 Seconds in Duration and decreasing >60 bpm in 30 minutes; No More than 5 Uterine Contractio ns in 10 Minutes for any 20 Minute Interval; Uterus Palpates Soft between Contractions ASSESSMENT A Monitor Mode: External US Monitor Interventions for FHR: Ultrasound Adjusted FHR Baseline Rate : 130 FHR Baseline Changes: No Baseline Change Variability: Moderate 6-25 bpm Accelerations: 15X15 Decelerations: Variable Datetime: 08/21/2024 21:53 VAGINAL EXAM Dilatation (cm): 10.0 Effacement (%): 100 Datetime: 08/21/2024 21:47 Station: 0 Exam by: Akash Dick, MD Datetime: 08/21/2024 21:45 LaborFlag: Labor Datetime: 08/21/2024 20:31 Respirations: 16 Datetime: 08/21/2024 20:02 COMMUNICATION Communication: Provider at Bedside Communication Comments: Anesthesia at bedside Datetime: 08/21/2024 20:01 Provider Notified (Name): Dr Dick Notification Reason: Status Update; Labor Status Datetime: 08/21/2024 19:58 Vaginal Bleeding: Scant Cervix, Consistency: Soft Cervix, Position: Posterior Datetime: 08/21/2024 19:00 Category: Category I Datetime: 08/21/2024 18:59 PAIN Pain Scale: 6 Datetime: 08/21/2024 18:55 Anesthesia Comments: Phone call to Cayetano Ocasio [employer] to notify of epidural pump alarming downstream occlusion. Patient not getting relief from epidural. Provider in OR, will see patient as soon as ou t of OR. Provider requests patient push button, dose administered. Datetime: 08/21/2024 18:54 I/O Interventions: Paiz Cath Inserted Datetime: 08/21/2024 18:41 Patient Position/Activity: Left Tilt Datetime: 08/21/2024 18:37 Membranes Ruptured Date/Time: 08/21/2024 16:36 Amniotic Fluid Odor: Normal Datetime: 08/21/2024 18:24 Epidural Procedure Other: Pump Started Datetime: 08/21/2024 18:17 ANESTHESIA Epidural Procedure: Loading Dose Datetime: 08/21/2024 18:14 Contraction Comments: TOCO replaced due to low battery Datetime: 08/21/2024 18:13 Comments: New EFM applied due to low battery Datetime: 08/21/2024 18:00 Actions for Decelerations: Side to Side; Blood Pressure Datetime: 08/21/2024 17:48 Pain Coping: Requesting Pain Medication or Epidural Datetime: 08/21/2024 17:45 Patient Care Comments: Patient sitting upright in position for epidural Datetime: 08/21/2024 16:36 Membranes Rupture Method: Artificial Amniotic Fluid Color: Clear Amniotic Fluid Amount: Moderate Datetime: 08/21/2024 16:10 MATERNAL ASSESSMENT Level of Consciousness: Alert DTR's/Clonus: DTRs 1+; 1 Beat Clonus Headache: Generalized Nausea/Vomiting: Denies RUQ Epigastric Pain: Present Datetime: 08/21/2024 15:03 MEDICATIONS Pitocin (milliunits): Decreased to @ 14 Datetime: 08/21/2024 10:14 PATIENT CARE IV/Blood Work: IV Infusing per Order; New IV Bag Hung; IV Bag Number @ 1 Datetime: 08/21/2024 09:13 Provider Reviewed Strip: Yes Datetime: 08/21/2024 08:05 Temperature Route: Oral
== END 2024-08-23 11:30 | disposition home or self-care (01) | DRG 807 ==
LOC: WFO 07:50 → FBP 07:52
PROVIDERS: ADMIT Obstetrics & Gynecology; ATTEND Obstetrics & Gynecology
DX: Z79.899 Other long term (current) drug therapy; Z87.891 Personal history of nicotine dependence; O70.0 First degree perineal laceration during delivery; Z37.0 Single live birth; Z23 Encounter for immunization; O76 Abnormality in fetal heart rate and rhythm complicating labor and delivery; O99.214 Obesity complicating childbirth; O10.92 Unspecified pre-existing hypertension complicating childbirth; Z3A.38 38 weeks gestation of pregnancy